=== PATIENT | female | born 1995 | race Caucasian/White ===

== ENCOUNTER 2024-06-08 15:08 | Observation (INO) | payer BC, SELFPAY ==
[2024-06-08] VITALS (10 sets, daily range): BP systolic 110–119; BP diastolic 59–69; PULSE 107–128; RESP 20; TEMP 37.1–38.4; O2SAT 78–99; BMI 27.6; BMI 28.3
--- NOTE | ~2024-06-08 | MR_ITS ---
EXAMINATION: MR cervical spine wo con DATE: 06/09/2024 11:26 INDICATION: Syncope. TECHNIQUE: Magnetic resonance imaging (MRI) of the cervical spine was performed without intravenous c ontrast. COMPARISON: None FINDINGS: There is 9 degrees dextrocurvature of cervicothoracic spine. There is kyphosis of cervical spine. Vertebral body heights are normal. Intervertebral disc heights are normal. The spinal cord sig nal intensity is normal. The following disc levels are specifically discussed: C2-C3: The disc does not extend beyond the endplate margin. There is no uncovertebral joint osteoarth ritis. There is no facet joint osteoarthritis. There is no neural foraminal stenosis. There is no michelle tral canal stenosis. C3-C4: The disc does not extend beyond the endplate margin. There is no uncovertebral joint osteoarth ritis. There is no facet joint osteoarthritis. There is no neural foraminal stenosis. There is no michelle tral canal stenosis. C4-C5: The disc does not extend beyond the endplate margin. There is no uncovertebral joint osteoarth ritis. There is no facet joint osteoarthritis. There is no neural foraminal stenosis. There is no michelle tral canal stenosis. C5-C6: There is a central extrusion. There is mild bilateral uncovertebral joint osteoarthritis. Ther e is no facet joint osteoarthritis. There is mild right neural foraminal stenosis. There is mild cent ral canal stenosis with ventral indentation of the spinal cord. C6-C7: The disc does not extend beyond the endplate margin. There is mild left uncovertebral joint os teoarthritis. There is no facet joint osteoarthritis. There is no neural foraminal stenosis. There is no central canal stenosis. C7-T1: The disc does not extend beyond the endplate margin. There is no uncovertebral joint osteoarth ritis. There is mild bilateral facet joint osteoarthritis. There is no neural foraminal stenosis. The re is no central canal stenosis. IMPRESSION: 1. Mild cervical spondylosis. Reviewed, dictated and finalized at location A. NT RESOURCE SPECIALIST
--- NOTE | ~2024-06-08 | MR_ITS ---
EXAMINATION: MR brain/brain stem wo con DATE: 06/09/2024 11:09 INDICATION: Syncopal episode with loss of consciousness during TECHNIQUE: Magnetic resonance imaging (MRI) of the brain and brainstem was performed without intraven ous contrast. Sequences included sagittal and axial T1-weighted SE, axial diffusion-weighted FS SE, a xial 3D SWAN, axial T2-weighted FLAIR, and axial T2-weighted FSE. Postcontrast axial and coronal T1-w eighted SE was obtained. Apparent diffusion coefficient (ADC) maps were created. COMPARISON: None. FINDINGS: There are no areas of restricted diffusion to suggest acute infarction. No intracranial hemorrhage or abnormal intracranial mass lesion. There are scattered areas of nonspecific increased T2-weighted si gnal intensity in the cerebral white matter, predominantly involving the deep and periventricular whi te matter. There are no intraparenchymal signal abnormalities seen on the other pulse sequences. The ventricles are symmetric and normal in size. There are no abnormal extra-axial fluid collections. Avelino w voids are seen in the cerebral arteries on the T2-weighted sequences consistent with their expected patency. Mild to moderate mucosal thickening throughout the bilateral ethmoid, sphenoid and maxillar y sinuses. Visualized orbits and soft tissues are unremarkable. IMPRESSION: 1. Sinus disease. Otherwise normal brain MR. Reviewed, dictated and finalized at location B. OPRACTIC NEUROLOGIST
--- NOTE | ~2024-06-08 | US_ITS ---
EXAMINATION: US OB limited DATE: 06/08/2024 16:48 SKIVER MACHINE INDICATION: Post fall COMPARISON: 02/06/2024 TECHNIQUE: Real-time transabdominal obstetric ultrasound. FINDINGS: 5 para 2 Estimated date of delivery by last menstrual period is 10/14/2024 A single intrauterine gestation is identified in breech presentation with placenta posterior. cardiac activity is identified at a rate of 157 bpm. IMPRESSION: Single intrauterine gestation with an approximate gestational age of 21 weeks and 5 days, with cardiac activity identified. Reviewed, dictated and finalized at location A. ER MACHINE IMPRESSION: Single intrauterine gestation with an approximate gestational age of 21 weeks a nd 5 days, with cardiac activity identified.
--- OUTSIDE RECORDS SUMMARY | 2024-06-08 15:33 | XMS_ITS ---
Author Organization Unknown Address [address] [place] [phone] Phone Care Team Providers Care Checker Cashier Name Role Phone YUMIKO MCKEON Attending Unavailable NO PCP Primary Unavailable Results RESPIRATORY 4 PLEX COVID FLU RSV PCR - Collect Date/Time: 01/09/2024 19:40 [facility] ID: [id number] [place] [address], [id number] LOINC: 27115-1 Test Value Unit Reference Range Code Code System Flag SARS CoV2 PCR NEGATIVE FLU A PCR NEGATIVE FLU B PCR NEGATIVE RSV PCR NEGATIVE SEND TO [facility]? NO Social History Type Status Start Date End Date Code Code Syst em Smoking History Never smoker (Never Smoked) [id number] SNOMED CT Sex Female Hospital Discharge Instructions Should you have any questions prior to discharge, please contact a member of your healthcare team. If you have left the hospital and have any questions, please contact your primary care physician. Reason For Referral No Data Found Plan of Treatment No Data Found Encounters Encounter Diagnosis Start Date Code Code Sys tem Acute sinusitis, unspecified 01/09/2024 SNOMED-CT Personal Care Team Section Performer Name Performer Role Active Date Inactive LUCIUS Ordonez PCP - Primary care physician 2024-06-08
--- OUTSIDE RECORDS SUMMARY | 2024-06-08 15:33 | XMS_ITS | Encounter Summary ---
Author Organization [facility] Address [address] [place] [address]. [place] [address] [place] [address] Care Team Providers Care Screen Tender Helper Name Role Phone None, Provider Primary Care Provider Fantasma Francis MD Primary Care Provider [phone] Encounter Details Date Type Department Care Team (Late st Contact Info) Description 10/12/2018 Abstract SFL CONVERSION [address] [place] [address] , Generic Conversion, Social History Tobacco Use Types Packs/Day Years Used Date Smoking Tobacco: Never Assessed Comments Unknown Sex and Gender Information Value Date Recorded Sex Assigned at Female 07/01/2021 5:56 AM PUBLIC HEALTH TEACHER Legal Sex Female 9:04 AM CDT Gender Identity Female 07/01/2021 5:56 AM PUBLIC HEALTH TEACHER Sexual Orientation Straight 07/01/2021 5: 56 AM PUBLIC HEALTH TEACHER documented as of this encounter Plan of Treatment Not on file documented as of this encounter Visit Diagnoses Not on filedocumented in this encounter Additional Health Concerns Infection Onset Date Last Indicated Resolved Time COVID-19 Rule Out 03/15/2021 03/15/2021 03/15/2021 6:17 PM PUBLIC HEALTH TEACHER COVID-19 Rule Out 05/20/2021 05/20/2021 05/20/2021 12:22 PM PUBLIC HEALTH TEACHER COVID-19 Confirmed 05/20/2021 05/20/2021 12:34 AM PUBLIC HEALTH TEACHER COVID-19 Rule Out 06/28/2021 06/28/2021 06/29/2021 7:06 PM PUBLIC HEALTH TEACHER documented as of this encounter Care Teams Screen Tender Helper Relationship Specialty Start Date End Date None, Provider, PCP - General 12/07/18 03/17/20 Fantasma Nina MD [address] [id number] PCP - General FAMILY PRACTICE 03/18/20 documented as of this encounter
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
--- OUTSIDE RECORDS SUMMARY | 2024-06-08 15:33 | XMS_ITS | Continuity of Care Document ---
Author Organization [facility] Address [address] [place] [address] Phone Care Team Providers Care Account Processor Name Role Phone Unavailable Unavailable Unavailable Advance Directives Directive Yes / No Effective Date File Name No Information Encounters Encounter Description Practice Location Reason(s) For Visit Diagnoses Date Provider Providers Copied on Encounter [facility], [address], [place], [place], [id number], [place] tel:[phone] No Information 3 No Information Referring Provider: Kannan [address], [place], [address]. tel:[phone] Family History Family Member Type Diagnosis Age At Onset No Information Payers Payer name Insurance type Covered democrat ID Authorariellaa ayde(s) [facility] [id number] Social History Type Description Quantity Date Captured Comments Sex Female Smoking Status No Information Chief Complaint And Reason For Visit No Information History Of Present Illness Encounter Date Complaint History Of Prese nt Illness No Information Instructions Date Instruction Additional Infor mation No Information Assessments Type Assessment Date No Information
--- OUTSIDE RECORDS SUMMARY | 2024-06-08 15:33 | XMS_ITS | Encounter Summary ---
Author Organization [facility] Address [address] [place] [address]. [place], [place] [address] [place] [address] Care Team Providers Care Mechanical Door Repairer Name Role Phone Fantasma Nina MD Primary Care Provider [phone] Encounter Details Date Type Department Care Team (Late st Contact Info) Description 09/26/2023 Avec Lab. Message [facility] [employer] [address] [facility] [place] [place] [address] Pete, [facility] Provider Proof of name change Social History Tobacco Use Types Packs/Day Years Used Date Smoking Tobacco: Never Smokeless Tobacco: Never Alcohol Use Standard Drinks/Week Comments Not Currently 0 (1 standard drink = 0.6 oz pur e alcohol) AUDIT-C Answer Date Recorded Frequency of Alcohol Consumption Never 12/07/2018 Average Number of Drinks Not on file 019 Frequency of Binge Drinking Not on file 07/2018 Comments No Sex and Gender Information Value Date Recorded Sex Assigned at Female 07/01/2021 5:56 AM MMA FIGHTER Legal Sex Female 9:04 AM CDT Gender Identity Female 07/01/2021 5:56 AM MMA FIGHTER Sexual Orientation Straight 07/01/2021 5: 56 AM MMA FIGHTER documented as of this encounter Functional Status * RETIRED Are you deaf or do you have serious difficulty hearing Answer Date of Assessment Author Status No 07/01/2021 6:11 AM MMA FIGHTER Activ e * RETIRED Are you blind or do you have serious difficulty seeing, even when wearing glasses? Answer Date of Assessment Author Status No 07/01/2021 6:11 AM MMA FIGHTER Activ e * Do you have serious difficulty walking or climbing stairs? Answer Date of Assessment Author Status No 07/01/2021 6:11 AM Verna Almaraz R N Active * Do you have difficulty dressing or bathing? Answer Date of Assessment Author Status No 07/01/2021 6:11 AM Verna Almaraz R N Active * Because of a physical, mental, or emotional condition, do you have difficulty doing errands alone such as visiting a doctor's office or shopping? Answer Date of Assessment Author Status No 07/01/2021 6:11 AM Verna Almaraz R N Active documented as of this encounter Mental Status * Because of a physical, mental, or emotional condition, do you have serious difficulty concentrating, remembering, or making decisions? Answer Entry Date Author Status No 07/01/2021 6:11 AM Verna Almaraz R N Active documented in this encounter Plan of Treatment Not on file documented as of this encounter Visit Diagnoses Not on filedocumented in this encounter Care Teams Mechanical Door Repairer Relationship Specialty Start Date End Date Fantasma Nina MD [address] [place] [address] [place] [address] PCP - General FAMILY PRACTICE 03/18/20 documented as of this encounter
--- OUTSIDE RECORDS SUMMARY | 2024-06-08 15:33 | XMS_ITS | Clinical Summary ---
Author Organization [facility] Address [address] [place] [address]. [place], [place] [address] [place] [address] Care Team Providers Care Circular Sawyer Helper Name Role Phone Fantasma Nina MD Primary Care Provider [phone] Allergies No known active allergies Medications No known medications Active Problems Problem Noted Date Diagnosed Date Iron deficiency anemia 12/08/2021 Acute blood loss anemia 07/02/2021 Chronic anemia 07/02/2021 Overview (07/02/2021): Chronic anemia Decreased am[facility]otic fluid ([facility]) 07/01/2021 Decreased movements in third trimester ( [facility]) 07/01/2021 Abnormal weight gain during ([facility]) 07/01/2021 Rubella non-immune status, antepartum ([facility]) 07/01/2021 History of delivery 07/01/2021 Anemia during in second trimester ([facility]) 03/15/2021 38 weeks gestation of ([facility] 2019 Resolved Problems Problem Noted Date Diagnosed Date Resolved Date COVID-19 affecting in third trimester ([facility]) 05/20/2021 07/01/2021 Urethral irritation 02/25/2021 07/01/19 Immunizations Name Administration Dates Next Due MMR (MMRII) 07/03/2021 Family History Medical History Relation Comments Heart Disease Father Cancer Maternal Grandfather Cancer Mother Heart Disease Mother Cancer Paternal Grandmother Relation Status Comments Father Alive Maternal Grandfather Mother Alive Paternal Grandmother Social History Tobacco Use Types Packs/Day Years [...] Sex Assigned at Female 07/01/2021 5:56 AM PRE K LEAD TEACHER Legal Sex Female 9:04 AM CDT Gender Identity Female 07/01/2021 5:56 AM PRE K LEAD TEACHER Sexual Orientation Straight 07/01/2021 5: 56 AM PRE K LEAD TEACHER Last Filed Vital Signs Vital Sign Reading Time Taken Comments Blood Pressure 110/65 02/21/2024 9:10 PM CDT Pulse 106 02/21/2024 7:03 PM CDT Temperature 36.8 ??C (98.3 ??F) 02/21/2024 7:03 PM CD T Respiratory Rate 16 02/21/2024 7:03 PM CDT Oxygen Saturation 98% 02/21/2024 9:10 PM CDT Inhaled Oxygen Concentration - - Weight 68 kg (150 lb) 02/21/2024 7:03 PM CDT Height 165.1 cm (5' 5 ) 02/21/2024 7:03 PM CDT Body Mass Index 24.96 02/21/2024 7:03 PM CDT Plan of Treatment Health Maintenance Due Date Last Done Comments Cervical Cancer Screening Pa p Smear (Age 21 to 29) Every 3 Years 1994 Cervical Cancer Screening 1994 Annual Physical 1997 Hepatitis C 2012 DTaP, Tdap and Td Vaccines ( 1 - Tdap) 2013 Hepatitis B Vaccines (1 of 3 - 19+ 3-dose series) 2013 COVID-19 Vaccine (2023-2 5 season) 2024 Influenza Adult (#1) 2024 HPV Vaccines Aged Out No longer eligi ble based on patient's age to complete this topic Meningococcal B Vaccine Aged Out No l onger eligible based on patient's age to complete this topic Meningococcal Vaccine Aged Out No maci christiane eligible based on patient's age to complete this topic Pneumococcal Vaccine: Pediat rics (0 to 5 Years) and At-Risk Patients (6 to 64 Years) Aged Out No longer eligible b ased on patient's age to complete this topic RSV Immunizations Under 20 Months Aged Out No longer eligible based on patient's age to complete this topic Insurance [facility] Advance Directives * Full Code (Latest Code Status on File) Date Activated Date Inactivated Comments 07/01/2021 4:27 PM 07/03/2021 1:39 PM * Full Code Date Activated Date Inactivated Comments 05/20/2021 4:55 PM 05/21/2021 2:59 PM * Full Code Date Activated Date Inactivated Comments 03/08/2021 11:32 AM 03/08/2021 3:33 PM Care Teams Circular Sawyer Helper Relationship Specialty Start Date End Date Fantasma Nina MD [address] [facility] [place] [phone] PCP - General FAMILY PRACTICE 03/18/20
--- OUTSIDE RECORDS SUMMARY | 2024-06-08 15:33 | XMS_ITS ---
Author Organization Unknown Address [address] [place] [phone] Phone Care Team Providers Care Gravity Prospecting Observer Name Role Phone JUDMONIQUE TIERNEY Attending Unavailable NATHAN Peralta Primary Unavailable Results URINALYSIS w/Microscopy/C&S if indicated - Collect Date/Time: 06/08/2024 12:35 [facility] ID: [id number] [address] [place], [place], [id number] LOINC: 80640-4 Test Value Unit Reference Range Code Code System Flag UR SOURCE VOIDED 73266-0 LOINC COLOR STRAW YELLOW 5778-6 LOINC CLARITY SL CLOUDY CLEAR 82588-6 LOINC SPEC GRAVITY 1.010 1.000-1.030 5811-5 LOINC PH 6.0 5.0 - 6.5 5803-2 LOINC LEUK EST NEGATIVE NEGATIVE 5799-2 LOINC NITRATE NEGATIVE NEGATIVE PROTEIN NEGATIVE NEGATIVE 5804-0 LOINC GLUCOSE NEGATIVE NEGATIVE 91248-9 LOINC KETONES NEGATIVE NEGATIVE 76207-0 LOINC UROBILINOGEN 0.2 0.2 - 1.0 5818-0 LOINC BILIRUBIN NEGATIVE NEGATIVE 77422-7 LOINC BLOOD NEGATIVE NEGATIVE 46204-7 LOINC WBC 0-2 0 - 2 58725-5 LOINC RBC 0-2 0 - 2 68204-3 LOINC SQ EPITHELIAL MODERATE RARE-FEW BACTERIA FEW NONE SEEN 28715-0 LOINC MUCUS NONE SEEN NONE SEEN 8247-9 LOINC YEAST NOT PRESENT NOT PRESENT 51442-3 LOINC TRICHOMONAS NOT PRESENT NOT PRESENT 85974-9 LOINC SPERMATOZOA NOT PRESENT NOT PRESENT 96201-8 LOINC CASTS NOT PRESENT 72425-0 LOINC CRYSTALS NOT PRESENT 70556-6 LOINC CULTURE? NO 8251-1 LOINC DIAGNOSIS N/A CBC W/ DIFF - Collect Date/T jenni: 06/08/2024 09:43 [facility] ID: [id number] [address] [place], [place], [id number] LOINC: 10468-0 Test Value Unit Reference Range Code Code System Flag WBC 10.4 10^3uL L=4.8 H=10.8 RBC 3.86 10^6uL L=4.20 H=5.40 L HEMOGLOBIN 10.2 g/dL L=12.0 H=16.0 718-7 LOINC L HEMATOCRIT 31.8 VOL% L=37.0 H=47.0 4544-3 LOINC L MCV 82.4 fL L=81.0 H=99.0 MCH 26.4 pg L=27.0 H=32.0 L MCHC 32.1 g/dL L=32.0 H=36.0 PLATELETS 325 10^3uL L=100 H=400 66875-5 LOINC RDW 15.0 % L=11.7 H=15.5 %GRAN 75.9 % L=40.0 H=70.0 39203-2 LOINC H %LYMPH 9.5 % L=20.0 H=45.0 736-9 LOINC L %MONO 12.6 % L=2.0 H=10.0 71325-3 LOINC H %EOS 0.9 % L=0.0 H=6.0 713-8 LOINC %BASO 0.4 % L=0.0 H=3.0 706-2 LOINC #NEUT 7.9 10^3uL L=1.9 H=7.6 81382-0 LOINC H #LYMPH 1.0 10^3uL L=0.9 H=4.9 20363-7 LOINC #MONO 1.3 10^3uL L=0.1 H=0.9 39181-9 LOINC H #EOS 0.1 10^3uL L=0.0 H=0.6 712-0 LOINC #BASO 0.04 10^3uL L=0.00 H=0.10 57118-7 LOINC #IM GRANS 0.1 10^3uL L=0.0 H=7.0 82784-9 LOINC %IM GRANS 0.7 % L=0.0 H=5.0 30551-9 LOINC %NRB 0.0 L=0.0 H=0.2 71881-7 LOINC #NRB 0.000 L=0.000 H=0.012 81401-5 LOINC MANUAL DIFF NOT INDICATED RBC MORPH NOT INDICATED COMPREHENSIVE METABOLIC PANE L - Collect Date/Time: 06/08/2024 09:43 [facility] ID: [id number] [address] [place], [place], [id number] LOINC: 33282-7 Test Value Unit Reference Range Code Code System Flag FASTING UNKNOWN BUN 5 mg/dL L=7 H=20 3094-0 LOINC L CREATININE 0.50 mg/dL L=0.52 H=1.04 2160-0 LOINC L GLUCOSE 111 mg/dL L=74 H=106 2345-7 LOINC H SODIUM 135 mmol/L L=132 H=144 2951-2 LOINC POTASSIUM 3.8 mmol/L L=3.5 H=5.1 2823-3 LOINC CHLORIDE 106 mmol/L L=98 H=107 2075-0 LOINC CO2 22.0 mmol/L L=22.0 H=30.0 2028-9 LOINC ANION GAP 11 L=10 H=20 46039-4 LOINC OSMOLALITY 278 mOs/kG L=280 H=296 46335-4 LOINC L BUN/CREAT 10.0 3097-3 LOINC CALCIUM 8.5 mg/dL L=8.3 H=10.5 71471-8 LOINC AST 25 U/L L=15 H=46 1920-8 LOINC ALT 13 U/L L=9 H=72 1742-6 LOINC ALKALINE PHOS 64 U/L L=38 H=126 6768-6 LOINC TOTAL BILI 0.2 mg/dL L=0.2 H=1.3 1975-2 LOINC ALBUMIN 3.1 G/dL L=3.5 H=5.0 1751-7 LOINC L TOTAL PROTEIN 6.8 g/L L=6.3 H=8.2 2885-2 LOINC A/G RATIO 0.8 39448-1 LOINC AGE 28 14858-1 LOINC eGFR NON-AFR 155 ml/min eGFR AFR AMER 188 ml/min PROTIME - Collect Date/Time: 06/08/2024 09:43 [facility] ID: [id number] [address] [place] [address], [id number] LOINC: 72341-3 Test Value Unit Reference Range Code Code System Flag PT 9.9 Sec L=9.7 H=11.7 78971-7 LOINC INR 0.9 Sec L=0.9 H=1.1 27574-8 LOINC PTT - Collect Date/Time: 06/2024 09:43 [facility] ID: [id number] [address] [place] [address], [id number] LOINC: 92336-7 Test Value Unit Reference Range Code Code System Flag PTT 25.0 Sec L=23.0 H=31.2 4 PLEX RESPIRATORY COVID FLU RSV PCR - Collect Date/Time: 06/08/2024 09:40 [facility] ID: [id number] [address] [place] [address], [id number] LOINC: 92187-0 Test Value Unit Reference Range Code Code System Flag SARS CoV2 PCR NEGATIVE FLU A PCR POSITIVE A FLU B PCR NEGATIVE RSV PCR NEGATIVE SEND TO [facility]? YES Social History Type Status Start Date End Date Code Code Syst em Smoking History Never smoker (Never Smoked) [id number] SNOMED CT Sex Female Hospital Discharge Instructions Should you have any questions prior to discharge, please contact a member of your healthcare team. If you have left the hospital and have any questions, please contact your primary care physician. Reason For Referral No Data Found Plan of Treatment No Data Found Personal Care Team Section Performer Name Performer Role Active Date Inactive LUCIUS Ordonez PCP - Primary care physician 02
--- NOTE | 2024-06-08 15:34 | PC.NURSE ---
At bedside for several minutes attempting to find FTH's. Dr Méndez notified and orders received for US and MRI of head.
--- NOTE | 2024-06-08 15:52 | PC.NURSE ---
Patient up to void, voided a large amount. After returning to bed a second attempt made to find FHT's. FHT's 155-160's. Dr Méndez notified of fht's. Cont with US for fluid and placenta check.
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
--- NOTE | 2024-06-08 16:13 | P.CONIM_ITS ---
Assessment and Plan Assessment and plan (1) Syncopal episodes: Qualifiers: Syncope type: unspecified Qualified Code(s): R55 - Syncope and collapse Code(s): R55 - Syncope and collapse Status: Acute Assessment and Plan: - MR brain and c-spine w/o con - Hgb 10.2, MCV and MCHC within normal limits previous hx of NATALIE, restart iron supplementation - repeat EKG - IV fluids: D5/LR at 125 mL/hr - telemetry monitoring Suspect syncope is more likely vasovagal given it was accompanied by hot flushing and dizziness prior to syncope. Low suspicion for cardiac arrhythmia or pulmonary embolism given the patient is young and currently has a viral infection. (2) Second trimester : Code(s): Z34.92 - Encounter for supervision of normal , unspecified, second trimester Status: Acute Assessment and Plan: - OB US: Single intrauterine gestation with an approximate gestational age of 21 weeks and 5 days, with cardiac activity identified. - , 2 ectopic pregnancies - vitamin (3) Influenza A: Code(s): J10.1 - Influenza due to other identified influenza virus with other respiratory manifestations Status: Acute Assessment and Plan: - tested positive for influenza A on 06/08 and symptom onset within the last 24 hours - Tamiflu 75 mg BID - supportive care - monitor WBC/CBC - currently not requiring increased supplemental O2 Plan Diet: NPO until imaging results -> regular GI Prophylaxis: not currently indicated DVT Prophylaxis: SCDs Lines: peripheral Code Status: full code HPI Date of Consult Consult date: 06/08/24 Requesting Physician: Ryan Stack MD Primary Care Provider: UNKNOWN,DOCTOR Consult Narrative Reason for consult: LOC, fall, 22weeks preg, Head injury Narrative: 28 y/p F presents here for further evaluation of syncope/fall with no significant past medical history. The patient presents here from [facility] for further evaluation of syncope with loss of consciousness /fall. She reports she went to the coffee shop for a cup coffee when she began to feel lightheaded and hot. Patient then had a syncopal episode with unknown LOC duration, was not with patient at the time and no time reported to EMS. She reports she does not remember passing out, only has recollection of being in the ambulance. She is concerned she may have passed out again in the ambulance as she has poor recollection of events then as well. She did sustain a small laceration to the back of her head. Post fall she is reporting a headache and dizziness. She describes the headache as posterior, achy, with intermittent radiation into her neck (elicited by turning head). She denies any numbness, tingling, or weakness in her extremities. She also denies phonophobia, photophobia, changes in vision or changes in speech. She did report she had a similar episode with her first , dizziness and black out spells but was severely anemic (NATALIE) according to her report. Not currently on an iron supplement. Her last menstrual cycle was on December of 2023, unsure of exact date. She is currently 22 weeks . , 2 ectopic pregnancies. She currently receives her care at [facility]. She also reports she has been experiencing cold symptoms including congestion and shortness of breath for the past 24 hours. The patient tested positive for flu A at the outside hospital today. Damaso recently also tested positive for the flu. She was initially tachycardic upon presentation in the 130s. Post 2L bolus she is now in the low 100s Initial VS at presentation: 98.8? F, HR 132, R 14, 122/67, and 98% on RA. ED workup showed: No leukocytosis, hemoglobin 10.2, MCV within normal limits, MCHC within normal limits, creatinine 0.5 and EGFR 155, osmolality 278, commands Mackenzie, UA was unremarkable. Patient tested positive for flu A. Review of Systems Review of Systems: All systems reviewed & are unremarkable except as noted in HPI and below PMFSH Past Medical History Medical History NATALIE (iron deficiency anemia) Exam Const: General: comfortable and no acute distress Other: , female, nontoxic appearance HENMT: Face/Nose/Sinus: Normal nares present Mouth: Yes moist mucous membranes Eyes: General: appearance normal, both eyes and all related structures Sclera: sclerae normal Pupils: Equal, round and reactive pupils present EOM: EOMs intact bilaterally Resp: Effort & Inspection: normal respiratory effort Auscultation: clear to auscultation bilaterally Cardio: Rate: regular rate Rhythm: regular rhythm Other: S1-S2 present without murmur, rub, ectopy GI: Other: Abdomen rounded, soft gravid uterus, normoactive bowel sounds in all quadrants. Skin: General skin exam: normal color and no rashes or lesions noted Wounds: wounds noted Other: Small laceration to posterior head, proximally 2 cm. No active bleeding. Neuro: Speech: normal speech Motor exam (neuro): 5/5 motor strength present throughout Sensory Exam: normal sensation Other: A&O x4 Extrem: General: normal to inspection Psych: Mental Status: mental status grossly normal Affect: normal affect Other: Good insight and judgment, pleasant Quality VTE Prophylaxis VTE prophylaxis: mechanical ordered Hospitalist [facility] Advance Care Plan I have confirmed that the patient's Advanced Care Plan is present, code status is documented, or surrogate decision maker is listed in patient medical record.: Yes Medication Reconciliation I have utilized all available resources to obtain, update and review the patients current medications (includes all prescriptions, OTC, herbals, cannabis, and nutritional supplements).: Yes
--- NOTE | 2024-06-08 16:30 | PC.NURSE ---
Dr Méndez here to see patient. No new orders.
--- NOTE | 2024-06-08 16:46 | ECG_ITS ---
Test Date: 2024-06-09 09:37:54 Measurements Intervals [place] Rate: 107 P: 4 IL: 128 QRS: 17 QRSD: 83 T: -9 QT: 323 QTc: 431 Interpretive Statements SINUS TACHYCARDIA DELAYED PRECORDIAL R/S TRANSITION BORDERLINE ST-T WAVE ABNORMALITY- ANT/INF LEADS ABNORMAL ECG No previous ECG available for comparison Electronically Signed On 06-09-2024 10:37:02 [employer]BE PUMPER by Timothy Dan D.O.
[2024-06-08] MEDS: DEXTROSE 5%/LACTATED RINGERS 1,000 ML 125 ML IV CONT (16:59)
--- NOTE | 2024-06-08 17:14 | PC.NURSE ---
Chauncey Mensah APRN notified that we do not have tele on our floor. Wanting patient transferred to tele floor. House sup notified and no bed is currently available.
--- NOTE | 2024-06-08 17:17 | PC.NURSE ---
Chauncey Mensah APRN notified that no tele bed is available at this time. Will transfer when bed is available.
--- NOTE | 2024-06-08 17:31 | OBADM ---
This patient, Reba Lay, admitted to the OB room OB Post 116 for observation. Patient/family oriented to hospital policies and general routines including ID bracelet, bed and alarms, visiting hours, pain management, procedures, bathroom and other care routines, personal items, smoking policy, room service/diet, and visiting hours. Patient/Family are encouraged to report perceived risks to care and to ask questions if they do not understand what they are told or what they should do.
[2024-06-08] MEDS: OSELTAMIVIR PHOSPHATE 75 MG CAPSULE PO (17:56)
[2024-06-08] MEDS: ACETAMINOPHEN 325 MG TABLET 650 MG PO (18:21)
--- NOTE | 2024-06-08 20:17 | ADMGEN ---
This patient, Reba Lay, was admitted to OB Post 116-00. Patient/family oriented to hospital policies and general routines including ID bracelet, bed and alarms, visiting hours, pain management, procedures, bathroom and other care routines, personal items, smoking policy, room service/diet, and visiting hours. Information on how to activate the Rapid Response Team has been discussed. Patient/Family are encouraged to report perceived risks to care and to ask questions if they do not understand what they are told or what they should do.
[2024-06-09 00:03] VITALS: PULSE 91
[2024-06-09] MEDS: DEXTROSE 5%/LACTATED RINGERS 1,000 ML 125 ML IV CONT ×2 (02:45→12:10)
[2024-06-09 04:00] VITALS: PULSE 98
[2024-06-09 06:00] VITALS: BP 106/67; PULSE 99; RESP 18; TEMP 36.8; O2SAT 97
[2024-06-09 06:49] LABS: Basophils Percent Auto 0.4 % (0.2-1.2); Eosinophils Absolute Auto 0.2 K/mm3 (0-0.3); Eosinophils Percent Auto 2.4 % (0-4.4); Hemoglobin 9.5 g/dL (12.0-15.0); Immature Granulocyte Absolute 0.05 K/mm3 (0.00-0.031); Immature Granulocyte Percent A 0.6 % (0-0.5); Lymphocytes Absolute Auto 0.73 K/mm3 (0.9-3.2); Lymphocytes Percent Auto 9.4 % (18.3-44.2); Mean Corpuscular HGB Conc 31.7 g/dl (32-36); Mean Corpuscular Hemoglobin 26.5 pg (26-34); Mean Corpuscular Volume 83.8 fl (80-100); Monocytes Percent Auto 12.5 % (2.6-8.5); Neutrophils Absolute Auto 5.8 K/mm3 (1.3-6.7); Neutrophils Percent Auto 74.7 % (45.5-73.1); Platelet Count Result 289 k/mm3 (150-375); Red Blood Count 3.58 M/mm3 (4.2-5.4); Red Cell Distribution Width 14.9 % (11.5-14.5); White Blood Count 7.8 K/mm3 (4.5-10.0)
--- NOTE | 2024-06-09 06:54 | P.PNOB_ITS ---
OB - PN: Subj Subjective Date/time seen: 06/09/24 06:54 Interval history: Feeling a lot better. pulse has come down OB - PN: Obj Data Labs 06/09/24 06:23 06/09/24 06:23 Imaging My impression: Await results of mri this am Radiologist's impression: Impressions Obstetrics Ultrasound 06/08/24 16:48 IMPRESSION: Single intrauterine gestation with an approximate gestational age of 21 weeks and 5 days, with cardiac activity identified. OB - PN A/P Assessment and Plan (1) Second trimester : Code(s): Z34.92 - Encounter for supervision of normal , unspecified, second trimester Status: Acute (2) Influenza A: Code(s): J10.1 - Influenza due to other identified influenza virus with other respiratory manifestations Status: Acute (3) Syncopal episodes: Qualifiers: Syncope type: unspecified Qualified Code(s): R55 - Syncope and collapse Code(s): R55 - Syncope and collapse Status: Acute Plan If MRI of the head is normal wall the patient to eat hopefully home today Time Spent With Patient Time: Total time spent is greater than 50% in coordination of care (as documented) at patient's floor/unit and/or counseling patient: Review of Systems 2 Review of Systems: All systems reviewed & are unremarkable except as noted in HPI and below Exam 2 Const: General: cooperative, healthy appearing and comfortable O rientation/consciousness: oriented to person, oriented to place and oriented to time Resp: Effort & Inspection: normal respiratory effort Cardio: Rate: regular rate Rhythm: regular rhythm Heart sounds: S1 normal heart sound present and S2 normal heart sound present
[2024-06-09 07:04] LABS: Potassium 3.8 mmol/L (3.4-5.0)
[2024-06-09 07:13] LABS: Anion Gap 6 mmol/L (4-12); Blood Urea Nitrogen 3 mg/dL (7-17); Calcium 7.8 mg/dL (8.4-10.2); Carbon Dioxide 21 mmol/L (22-30); Chloride 107 mmol/L (98-107); Estimated CRCL calculation 177 ml/min; Estimated Glomerular Filt Rate > 60; Glucose 97 mg/dL (65-110); Sodium 134 mmol/L (137-145)
[2024-06-09 08:00] VITALS: PULSE 104
--- NOTE | 2024-06-09 09:53 | PM.IMPN ---
Progress Note: A&P Assessment and Plan (1) Syncopal episodes: Qualifiers: Syncope type: unspecified Qualified Code(s): R55 - Syncope and collapse Code(s): R55 - Syncope and collapse Status: Acute Assessment and Plan: MRI of brain and C spine was negative for any acute findings, shown cervical spondylosis. Encouraged to do stretching exercises for her neck and use bio-freeze or icy hot as needed. She can also use heat on her shoulders as well She is stable from our standpoint to discharge any time. (2) Second trimester : Code(s): Z34.92 - Encounter for supervision of normal , unspecified, second trimester Status: Acute Assessment and Plan: OB US: Single intrauterine gestation with an approximate gestational age of 21 weeks and 5 days, with cardiac activity identified. Continue vitamin (3) Influenza A: Code(s): J10.1 - Influenza due to other identified influenza virus with other respiratory manifestations Status: Acute Assessment and Plan: Continue Tamiflu for a duration of 5 days. Time Spent With Patient Time with patient: 15 - 25 minutes Subjective Date/time seen: 06/09/24 09:53 Interval history: Patient denies any new complaints today. Labs and imaging reviewed. Review of Systems Review of Systems: All systems reviewed & are unremarkable except as noted in HPI and below Exam Narrative: General: In no acute distress, well nourished Head: atraumatic, no encephalopathy. Denies any lightheadedness, dizziness, vision changes, headache. Eyes: PERRLA, sclera clear Neck: supple, no JVD, no adenopathy, trachea midline Cervical spine: No pain to palpitation down C spine, she does have some tightness and tenderness to her trapezius muscles Cardiac: Normal S1 and S2. No murmur, gallops or friction rubs, peripheral pulses intact. Respiratory: Lungs clear to auscultation, no adventitious lung sounds, currently on room air Extremities: moves all extremities well Neuro: Alert and oriented x4 Objective Data Vital Signs Vital Signs: Vital Signs - 24 hr 06/08/24 16:00 06/08/24 17:30 06/08/24 18:02 Temperature 98.8 F 101.2 F H Pulse Rate Respiratory Rate Blood Pressure Pulse Oximetry Oxygen Delivery Room Air 06/08/24 18:21 06/08/24 19:39 06/08/24 19:39 Temperature 101.2 F H Pulse Rate Respiratory Rate Blood Pressure Pulse Oximetry 78 L 92 Oxygen Delivery 06/08/24 19:39 06/08/24 19:39 06/08/24 19:44 Temperature Pulse Rate 107 H Respiratory Rate Blood Pressure 110/59 L Pulse Oximetry 99 Oxygen Delivery 06/08/24 19:45 06/08/24 19:49 06/08/24 20:18 Temperature Pulse Rate 110 H Respiratory Rate Blood Pressure 118/65 Pulse Oximetry 97 97 Oxygen Delivery Room Air 06/08/24 20:24 06/08/24 22:00 06/09/24 00:03 Temperature 99.5 F Pulse Rate 120 H 114 H 91 Respiratory Rate 20 Blood Pressure 119/69 Pulse Oximetry 97 Oxygen Delivery 06/09/24 04:00 06/09/24 06:00 Temperature 98.3 F Pulse Rate 98 99 Respiratory Rate 18 Blood Pressure 106/67 Pulse Oximetry 97 Oxygen Delivery Intake/Output Intake/Output: Intake & Output 06/06/24 06/07/24 06/08/24 06/09/24 23:59 23:59 23:59 23:59 Intake Total 1100 Output Total 400 1600 Balance -400 -500 Meds/Results Medications: Active Medications Generic Name Dose Route Start Last Admin Trade Name Freq PRN Reason Stop Dose Admin Acetaminophen 650 mg 06/08/24 16:44 06/08/24 18:21 Acetaminophen 325 Mg Tablet PO 650 mg Q4H PRN Administration Mild Pain (1-3) or Fever Benzocaine 1 lozenge 06/08/24 16:41 Benzocaine/Menthol (*Bkc) 18 Ea Lozenge PO PRN PRN Sore Throat Ferrous Sulfate 325 mg 06/09/24 09:00 Ferrous Sulfate [address] PO DAILY KATIUSKA Dextrose/Lactated Ringer's 1,000 mls @ 125 mls/hr 06/08/24 16:40 06/09/24 02:45 Dextrose 5%/Lactated Ringers IV CONT 125 mls/hr .Q8H KATIUSKA Administration Miscellaneous Information 1 each 06/08/24 00:01 Please Add Drug Allergy Info To Patient Profile. XX 07/08/24 00:00 CLARIFY KATIUSKA Oseltamivir Phosphate 75 mg 06/08/24 17:30 06/08/24 17:56 Oseltamivir Phosphate 75 Mg Capsule PO 06/13/24 17:29 75 mg Q12HR KATIUSKA Administration Vit/Calcium/Iron/Folic Ac 1 tab 06/09/24 09:00 Multivit/Min/Pren/Fol Ac/Iron Tablet PO DAILY [facility] Radiology Results: ITS Impressions Obstetrics Ultrasound 06/08/24 16:48 IMPRESSION: Single intrauterine gestation with an approximate gestational age of 21 weeks and 5 days, with cardiac activity identified. Labs Labs: Laboratory Results - last 24 hr 06/09/24 06:23 WBC 7.8 RBC 3.58 L Hgb 9.5 L Hct 30.0 L MCV 83.8 MCH 26.5 MCHC 31.7 L RDW 14.9 H Plt Count 289 MPV 10.0 Immature Gran % (Auto) 0.6 H Neut % (Auto) 74.7 H Lymph % (Auto) 9.4 L [place] % (Auto) 12.5 H Eos % (Auto) 2.4 Baso % (Auto) 0.4 Lymph # (Auto) 0.73 L [place] # (Auto) 1.0 H Eos # (Auto) 0.2 Baso # (Auto) 0.0 Abs Immat Gran (auto) 0.05 H Absolute Neuts (auto) 5.8 Absolute Nucleated RBC 0.000 Nucleated RBC % 0.0 Sodium 134 L Potassium 3.8 Chloride 107 Carbon Dioxide 21 L Anion Gap 6 BUN 3 L Creatinine 0.39 L Estim Creat Clear Calc 177 Estimated GFR > 60 Glucose 97 Calcium 7.8 L Quality VTE Prophylaxis VTE prophylaxis: mechanical ordered
[2024-06-09] MEDS: MULTIVIT/MIN/PREN/FOL AC/IRON TABLET 1 TAB PO (10:37)
[2024-06-09] MEDS: FERROUS SULFATE 325 MG TABLET DR PO (10:37)
[2024-06-09 12:00] VITALS: PULSE 121
[2024-06-09] MEDS: OSELTAMIVIR PHOSPHATE ORAL SUSP 75 MG/12.5 ML SYRINGE PO (12:10)
[2024-06-09] MEDS: ACETAMINOPHEN 325 MG TABLET 650 MG PO (12:25)
--- NOTE | 2024-06-09 12:25 | PM.OBPNVD ---
OB - PN: Subj Subjective Date/time seen: 06/09/24 12:25 Feels OK today. Mostly just hungry. OB - PN: Obj Data Labs 06/09/24 06:23 06/09/24 06:23 Labs: Laboratory Results - last 24 hr 06/09/24 06:23 WBC 7.8 RBC 3.58 L Hgb 9.5 L Hct 30.0 L MCV 83.8 MCH 26.5 MCHC 31.7 L RDW 14.9 H Plt Count 289 MPV 10.0 Immature Gran % (Auto) 0.6 H Neut % (Auto) 74.7 H Lymph % (Auto) 9.4 L [place] % (Auto) 12.5 H Eos % (Auto) 2.4 Baso % (Auto) 0.4 Lymph # (Auto) 0.73 L [place] # (Auto) 1.0 H Eos # (Auto) 0.2 Baso # (Auto) 0.0 Abs Immat Gran (auto) 0.05 H Absolute Neuts (auto) 5.8 Absolute Nucleated RBC 0.000 Nucleated RBC % 0.0 Sodium 134 L Potassium 3.8 Chloride 107 Carbon Dioxide 21 L Anion Gap 6 BUN 3 L Creatinine 0.39 L Estim Creat Clear Calc 177 Estimated GFR > 60 Glucose 97 Calcium 7.8 L Imaging Radiologist's impression: Impressions Obstetrics Ultrasound 06/08/24 16:48 IMPRESSION: Single intrauterine gestation with an approximate gestational age of 21 weeks and 5 days, with cardiac activity identified. Brain MRI 06/09/24 11:14 IMPRESSION: 1. Sinus disease. Otherwise normal brain MR. Cervical Spine MRI 06/09/24 11:29 IMPRESSION: 1. Mild cervical spondylosis. OB - PN A/P Assessment and Plan (1) Second trimester : Code(s): Z34.92 - Encounter for supervision of normal , unspecified, second trimester Status: Acute Assessment and Plan: MRI shows no acute change. Clinically she feels better. Plan home if OK with hospitalist to f/u in office as scheduled. (2) Influenza A: Code(s): J10.1 - Influenza due to other identified influenza virus with other respiratory manifestations Status: Acute (3) Syncopal episodes: Qualifiers: Syncope type: unspecified Qualified Code(s): R55 - Syncope and collapse Code(s): R55 - Syncope and collapse Status: Acute Exam Narrative: AVSS ABD soft, nontender, gravid EXT nontender
--- NOTE | 2024-06-09 12:34 | P.DS_ITS ---
DS: Admitting Diagnosis Discharge Date 06/09/24 Admitting Diagnosis IUP at 21 weeks Syncope Head laceration Influenza A DS: Discharge Diagnosis Discharge Diagnosis (1) Second trimester : Code(s): Z34.92 - Encounter for supervision of normal , unspecified, second trimester Status: Acute (2) Influenza A: Code(s): J10.1 - Influenza due to other identified influenza virus with other respiratory manifestations Status: Acute (3) Syncopal episodes: Qualifiers: Syncope type: unspecified Qualified Code(s): R55 - Syncope and collapse Code(s): R55 - Syncope and collapse Status: Acute (4) Laceration of head: Code(s): S01.91XA - Laceration without foreign body of unspecified part of head, initial encounter Status: Acute DS: Summary Hospital Course Hospital Course: Admitted after syncope with laceration to the head in the setting of influenza A and midtrimester . Hospitalist service consulted. MRI head /neck showed no acute change. She felt better and was able to go home. DS: Data Data Completed and Pending Labs on day of discharge: Labs from last 24 hours 06/09/24 06:23 WBC 7.8 RBC 3.58 L Hgb 9.5 L Hct 30.0 L MCV 83.8 MCH 26.5 MCHC 31.7 L RDW 14.9 H Plt Count 289 MPV 10.0 Immature Gran % (Auto) 0.6 H Neut % (Auto) 74.7 H Lymph % (Auto) 9.4 L [place] % (Auto) 12.5 H Eos % (Auto) 2.4 Baso % (Auto) 0.4 Lymph # (Auto) 0.73 L [place] # (Auto) 1.0 H Eos # (Auto) 0.2 Baso # (Auto) 0.0 Abs Immat Gran (auto) 0.05 H Absolute Neuts (auto) 5.8 Absolute Nucleated RBC 0.000 Nucleated RBC % 0.0 Sodium 134 L Potassium 3.8 Chloride 107 Carbon Dioxide 21 L Anion Gap 6 BUN 3 L Creatinine 0.39 L Estim Creat Clear Calc 177 Estimated GFR > 60 Glucose 97 Calcium 7.8 L Discharge Plan Discharge Attending physician on discharge: Flash Santiago Consulting providers: Aldo Diane Discharging Clinician: Hulsen,Flash M. Patient Disposition: Home, Self-Care Activity: as tolerated Diet: regular Discharge Instructions: Call or return if temperature above 100.4? F, increased abdominal pain, vaginal bleeding or any new problems. Patient Language: [place] Stand Alone Forms: General Discharge Information Follow-up/Referrals: Flash Santiago MD [Physician] - Keep Reg. Scheduled Appt. Discharge Medications: New oseltamivir [Tamiflu] 75 mg capsule 75 mg PO BID Qty: 8 0RF ferrous sulfate 325 mg (65 mg iron) tablet 325 mg PO DAILY Qty: 30 0RF Continued hydroxyzine HCl 25 mg tablet 25 mg PO BID PRN (Reason: anxiety) sertraline 50 mg tablet 50 mg PO DAILY Date of admission: 06/08/24 15:08 Primary Care Provider: UNKNOWN,DOCTOR Admitting Provider: Ryan Pond Attending physician on admission: Abigail Mantilla Condition: Stable
== END 2024-06-09 13:15 | disposition home or self-care (01) ==
LOC: ANH3MEDSUR 06-09 12:33 → ANHOBPP 06-10 07:41
PROVIDERS: Student in an Organized Health Care Education/Training Program; Admitting Provider Obstetrics & Gynecology; Visit Provider Nurse Practitioner Acute Care
DX: O26.892 Other specified pregnancy related conditions, second trimester (principal); R55 Syncope and collapse; O9A.212 Injury, poisoning and certain other consequences of external causes complicating pregnancy, second trimester; S01.91XA Laceration without foreign body of unspecified part of head, initial encounter; W19.XXXA Unspecified fall, initial encounter; O99.512 Diseases of the respiratory system complicating pregnancy, second trimester; J10.1 Influenza due to other identified influenza virus with other respiratory manifestations; Z3A.21 21 weeks gestation of pregnancy
CPT/HCPCS: 36415; 70551; 72141; 76815; 80048; 85025; 93005; 96360; 96361; A9270; G0378; G0379; J7121

== ENCOUNTER 2024-08-18 12:23 | Outpatient (CLI) | payer BC, SELFPAY ==
[2024-08-18] VITALS (10 sets, daily range): BP systolic 113–125; BP diastolic 69–81; PULSE 102–128; BMI 31.7
[2024-08-18 13:11] LABS: Basophils Absolute Auto 0.1 K/mm3 (0.0-0.1); Basophils Percent Auto 0.4 % (0.2-1.2); Eosinophils Absolute Auto 0.2 K/mm3 (0-0.3); Eosinophils Percent Auto 1.1 % (0-4.4); Hematocrit 30.4 % (37.0-47.0); Immature Granulocyte Absolute 0.19 K/mm3 (0.00-0.031); Immature Granulocyte Percent A 1.4 % (0-0.5); Lymphocytes Absolute Auto 2.06 K/mm3 (0.9-3.2); Lymphocytes Percent Auto 15.1 % (18.3-44.2); Mean Corpuscular HGB Conc 29.6 g/dl (32-36); Mean Corpuscular Hemoglobin 22.6 pg (26-34); Mean Corpuscular Volume 76.4 fl (80-100); Mean Platelet Volume 9.6 fl (7.4-10.4); Monocytes Absolute Auto 1.2 K/mm3 (0.1-0.6); Platelet Count Result 413 k/mm3 (150-375); Red Blood Count 3.98 M/mm3 (4.2-5.4); Red Cell Distribution Width 16.1 % (11.5-14.5); White Blood Count 13.6 K/mm3 (4.5-10.0)
[2024-08-18 13:18] LABS: Add Urine Microscopic? YES; Appearance Urine Cloudy (Clear); Bacteria Urine 4+ /hpf; Bilirubin Urine Negative (Negative); Blood Urine Negative (Negative); Color Urine Yellow (Yellow); Glucose Urine UA Negative (Negative); Ketones Urine Negative (Negative); Leukocyte Esterase Ur 3+ LEU/UL (Negative); Nitrate Urine Negative (Negative); Non Pathogenic Casts 0-2; Protein Urine Negative (Negative); RBC Urine 0-2 /hpf (0-2); Specific Grav Ur 1.007 (1.001-1.035); Squamous Epithelial Cell Urine Many /hpf (Few); Urobilinogen Urine 0.2 mg/dL (<2.0); WBC Urine 51-100 /hpf (0-3)
[2024-08-18 13:39] LABS: Anisocytosis 1+; Hypochromasia 2+; Platelet Estimate Increased (Adequate); Schistocytes None Seen
--- OUTSIDE RECORDS SUMMARY | 2024-08-18 13:39 | XMS_ITS | Encounter Summary ---
Author Organization [facility] Address [address] [place] [address] Care Team Providers Care Pre Sales Architect Name Role Phone Fantasma Nina MD Primary Care Provider [phone] Encounter Details Date Type Department Care Team (Late st Contact Info) Description 09/26/2023 [employer] Message [facility] [employer] [address] [place] [address] [employer], [facility] Provider Proof of name change [...] Sex Assigned at Female 07/01/2021 5:56 AM FRONT OFFICE MANAGER Legal Sex Female 9:04 AM CDT Gender Identity Female 07/01/2021 5:56 AM FRONT OFFICE MANAGER Sexual Orientation Straight 07/01/2021 5: 56 AM FRONT OFFICE MANAGER documented as of this encounter Functional Status * RETIRED Are you deaf or do you have serious difficulty hearing Answer Date of Assessment Author Status No 07/01/2021 6:11 AM FRONT OFFICE MANAGER Activ e * RETIRED Are you blind or do you have serious difficulty seeing, even when wearing glasses? Answer Date of Assessment Author Status No 07/01/2021 6:11 AM FRONT OFFICE MANAGER Activ e * Do you have serious difficulty walking or climbing stairs? Answer Date of Assessment Author Status No 07/01/2021 6:11 AM FRONT OFFICE MANAGER Verna Yanes R N Active * Do you have [...] on filedocumented in this encounter Care Teams Pre Sales Architect Relationship Specialty Start Date End Date Fantasma Nina MD [address] [place] [address] PCP - General FAMILY PRACTICE 03/18/20 documented as of this encounter
--- OUTSIDE RECORDS SUMMARY | 2024-08-18 13:39 | XMS_ITS ---
Author Organization Unknown Address [address] [place] [phone] Phone Care Team Providers Care Transplant Nurse Name Role Phone JUDMONIQUE TIERNEY Attending Unavailable NATHAN Peralta Primary Unavailable Results URINALYSIS w/Microscopy/C&S if indicated - Collect Date/Time: 06/08/2024 12:35 [facility] ID: [id number] [place] [address], [id number] LOINC: 63337-5 Test Value Unit Reference Range Code Code System Flag UR SOURCE VOIDED 87928-1 LOINC COLOR STRAW YELLOW 5778-6 LOINC CLARITY SL CLOUDY CLEAR 89234-3 LOINC SPEC GRAVITY 1.010 1.000-1.030 5811-5 LOINC PH 6.0 5.0 - 6.5 5803-2 LOINC LEUK EST NEGATIVE NEGATIVE 5799-2 LOINC NITRATE NEGATIVE NEGATIVE PROTEIN NEGATIVE NEGATIVE 5804-0 LOINC GLUCOSE NEGATIVE NEGATIVE 72800-1 LOINC KETONES NEGATIVE NEGATIVE 91453-9 LOINC UROBILINOGEN 0.2 0.2 - 1.0 5818-0 LOINC BILIRUBIN NEGATIVE NEGATIVE 71481-5 LOINC BLOOD NEGATIVE NEGATIVE 72630-3 LOINC WBC 0-2 0 - 2 60423-4 LOINC RBC 0-2 0 - 2 50315-1 LOINC SQ EPITHELIAL MODERATE RARE-FEW BACTERIA FEW NONE SEEN 48983-5 LOINC MUCUS NONE SEEN NONE SEEN 8247-9 LOINC YEAST NOT PRESENT NOT PRESENT 38436-2 LOINC TRICHOMONAS NOT PRESENT NOT PRESENT 78789-3 LOINC SPERMATOZOA NOT PRESENT NOT PRESENT 95138-9 LOINC CASTS NOT PRESENT 52141-7 LOINC CRYSTALS NOT PRESENT 47015-6 LOINC CULTURE? NO 8251-1 LOINC DIAGNOSIS N/A CBC W/ DIFF - Collect Date/T jenni: 06/08/2024 09:43 [facility] ID: [id number] [address] [place], [place], [phone] LOINC: 58259-6 Test Value Unit Reference Range Code Code System Flag WBC 10.4 10^3uL L=4.8 H=10.8 RBC 3.86 10^6uL L=4.20 H=5.40 L HEMOGLOBIN 10.2 g/dL L=12.0 H=16.0 718-7 LOINC L HEMATOCRIT 31.8 VOL% L=37.0 H=47.0 4544-3 LOINC L MCV 82.4 fL L=81.0 H=99.0 MCH 26.4 pg L=27.0 H=32.0 L MCHC 32.1 g/dL L=32.0 H=36.0 PLATELETS 325 10^3uL L=100 H=400 02112-3 LOINC RDW 15.0 % L=11.7 H=15.5 %GRAN 75.9 % L=40.0 H=70.0 85223-4 LOINC H %LYMPH 9.5 % L=20.0 H=45.0 736-9 LOINC L %MONO 12.6 % L=2.0 H=10.0 39848-5 LOINC H %EOS 0.9 % L=0.0 H=6.0 713-8 LOINC %BASO 0.4 % L=0.0 H=3.0 706-2 LOINC #NEUT 7.9 10^3uL L=1.9 H=7.6 43104-5 LOINC H #LYMPH 1.0 10^3uL L=0.9 H=4.9 91358-3 LOINC #MONO 1.3 10^3uL L=0.1 H=0.9 03260-6 LOINC H #EOS 0.1 10^3uL L=0.0 H=0.6 712-0 LOINC #BASO 0.04 10^3uL L=0.00 H=0.10 80983-9 LOINC #IM GRANS 0.1 10^3uL L=0.0 H=7.0 45813-2 LOINC %IM GRANS 0.7 % L=0.0 H=5.0 40228-8 LOINC %NRB 0.0 L=0.0 H=0.2 28752-9 LOINC #NRB 0.000 L=0.000 H=0.012 19683-1 LOINC MANUAL DIFF NOT INDICATED RBC MORPH NOT INDICATED COMPREHENSIVE METABOLIC PANE L - Collect Date/Time: 06/08/2024 09:43 [facility] ID: [id number] [address] [place], [place], [id number] LOINC: 79110-3 Test Value Unit Reference Range Code Code [...] 2028-9 LOINC ANION GAP 11 L=10 H=20 96779-1 LOINC OSMOLALITY 278 mOs/kG L=280 H=296 81066-2 LOINC L BUN/CREAT 10.0 3097-3 LOINC CALCIUM 8.5 mg/dL L=8.3 H=10.5 69712-2 LOINC AST 25 U/L L=15 H=46 1920-8 LOINC ALT 13 U/L L=9 H=72 1742-6 LOINC ALKALINE PHOS 64 U/L L=38 H=126 6768-6 LOINC TOTAL BILI 0.2 mg/dL L=0.2 H=1.3 1975-2 LOINC ALBUMIN 3.1 G/dL L=3.5 H=5.0 1751-7 LOINC L TOTAL PROTEIN 6.8 g/L L=6.3 H=8.2 2885-2 LOINC A/G RATIO 0.8 73363-9 LOINC AGE 28 60669-4 LOINC eGFR NON-AFR 155 ml/min eGFR AFR AMER 188 ml/min PROTIME - Collect Date/Time: 06/08/2024 09:43 [facility] ID: [id number] [address] [place] [address], [phone] LOINC: 85578-6 Test Value Unit Reference Range Code Code System Flag PT 9.9 Sec L=9.7 H=11.7 98497-6 LOINC INR 0.9 Sec L=0.9 H=1.1 75470-4 LOINC PTT - Collect Date/Time: 06/2024 09:43 [facility] ID: [id number] [address] [place] [address], [phone] LOINC: 07022-8 Test Value Unit Reference Range Code Code System Flag PTT 25.0 Sec L=23.0 H=31.2 4 PLEX RESPIRATORY COVID FLU RSV PCR - Collect Date/Time: 06/08/2024 09:40 [facility] ID: [id number] [address] [place] [address], [phone] LOINC: 72521-2 Test Value Unit Reference Range Code Code System Flag SARS CoV2 PCR NEGATIVE FLU A PCR POSITIVE A FLU B PCR NEGATIVE RSV PCR NEGATIVE SEND TO [facility]? YES Social History Type Status Start Date End Date Code Code Syst em Smoking History Never smoker (Never Smoked) 281385160 SNOMED CT Sex Female Hospital Discharge Instructions Should you have any questions prior to discharge, please contact a member of your healthcare team. If you have left the hospital and have any questions, please contact your primary care physician. Reason For Referral No Data Found Plan of Treatment No Data Found Encounters Encounter Diagnosis Start Date Code Code Sys tem Diseases of the respiratory system complicating , second trimester 06/08/2024 SNOMED-CT Personal Care Team Section Performer Name Performer Role Active Date Inactive Da LUCIUS Barfield PCP - Primary care physician 2024-06-08
--- OUTSIDE RECORDS SUMMARY | 2024-08-18 13:39 | XMS_ITS | Clinical Summary ---
Author Organization [facility] Address [address] [place] [address] Care Team Providers Care Hvac Specialist Name Role Phone Fantasma Nina MD Primary Care Provider [phone] Allergies No known active allergies Medications No known medications Active Problems Problem Noted Date Diagnosed Date Iron deficiency anemia 12/08/2021 Acute blood loss anemia 07/02/2021 Chronic anemia 07/02/2021 Overview (07/02/2021): Chronic anemia Decreased amniotic fluid ([facility]) 07/01/2021 Decreased movements in third trimester ( [facility]) 07/01/2021 Abnormal weight gain during ([facility]) 07/01/2021 Rubella non-immune status, antepartum ([facility]) 07/01/2021 History of delivery 07/01/2021 Anemia during in second trimester ([facility]) 03/15/2021 38 weeks gestation of ([facility]) 2019 Resolved Problems Problem Noted Date Diagnosed Date Resolved Date COVID-19 affecting in third trimester ([facility]) 05/20/2021 07/01/2021 Urethral irritation 02/25/2021 07/01/19 22 Immunizations Immunization Administration Dates Next Due MMR (MMRII) 07/03/2021 [...] Frequency of Binge Drinking Not on file 0807/2018 Comments No Sex and Gender Information Value Date Recorded Sex Assigned at Female 07/01/2021 5:56 AM PHILOSOPHY FACULTY MEMBER Legal Sex Female 9:04 AM CDT Gender Identity Female 07/01/2021 5:56 AM PHILOSOPHY FACULTY MEMBER Sexual Orientation Straight 07/01/2021 5: 56 AM PHILOSOPHY FACULTY MEMBER Last Filed Vital Signs Vital Sign Reading Time Taken Comments Blood Pressure 110/65 02/21/2024 9:10 PM CDT Pulse 106 02/21/2024 7:03 PM CDT Temperature 36.8 C (98.3 F) 02/21/2024 7:03 PM CDT Respiratory Rate 16 02/21/2024 7:03 PM CDT Oxygen Saturation 98% 02/21/2024 9:10 PM CDT Inhaled Oxygen Concentration - - Weight 68 kg (150 lb) 02/21/2024 7:03 PM CDT Height 165.1 cm (5' 5 ) 02/21/2024 7:03 PM CDT Body Mass Index 24.96 02/21/2024 7:03 PM CDT Plan of Treatment Health Maintenance Due Date Last Done Comments Cervical Cancer Screening Pa p Smear (Age 30 to 64) Every 3 Years 1994 Annual Physical 1997 Hepatitis C 2012 DTaP, Tdap and Td Vaccines ( 1 - Tdap) 2013 Hepatitis B Vaccines (1 of 3 - 19+ 3-dose series) 2013 COVID-19 Vaccine (2023-2 5 season) 2024 Cervical Cancer Screening Pa p with HPV Testing (Age 30 to 64) Every 5 Years 2024 Cervical Cancer Screening with HPV 2024 HPV Vaccines Aged Out No longer eligi ble based on patient's age to complete this topic Meningococcal B Vaccine Aged Out No l onger eligible based on patient's age to complete this topic Meningococcal Vaccine Aged Out No maci christiane eligible based on patient's age to complete this topic Pneumococcal Vaccine: Pediat rics (0 to 5 Years) and At-Risk Patients (6 to 49 Years) Aged Out No longer eligible b ased on patient's age to complete this topic RSV Immunizations Under 20 Months Aged Out No longer eligible based on patient's age to complete this topic Insurance [facility] Advance Directives * Full Code (Latest Code Status on File) Date Activated Date Inactivated Comments 07/01/2021 4:27 PM 07/03/2021 1:39 PM * Full Code Date Activated Date Inactivated Comments 05/20/2021 4:55 PM 05/21/2021 2:59 PM * Full Code Date Activated Date Inactivated Comments 03/08/2021 11:32 AM 03/08/2021 3:33 PM Care Teams Hvac Specialist Relationship Specialty Start Date End Date Fantasma Nina MD [facility] [place] [address] PCP - General FAMILY PRACTICE 03/18/20
--- OUTSIDE RECORDS SUMMARY | 2024-08-18 13:39 | XMS_ITS ---
Author Organization Unknown Address [address] [place] [phone] Phone Care Team Providers Care Home Security Alarm Installer Name Role Phone YUMIKO MCKEON Attending Unavailable NO PCP Primary Unavailable Results RESPIRATORY 4 PLEX COVID FLU RSV PCR - Collect Date/Time: 01/09/2024 19:40 [facility] ID: [id number] [id number] [place] [address], [phone] LOINC: 16845-2 Test Value Unit Reference Range Code Code System Flag SARS CoV2 PCR NEGATIVE FLU A PCR NEGATIVE FLU B PCR NEGATIVE RSV PCR NEGATIVE SEND TO [facility]? NO Social History Type Status Start Date End Date Code Code Syst em Smoking History Never smoker (Never Smoked) [id number] SNOMED CT Sex Female Hospital Discharge Instructions [...]
--- OUTSIDE RECORDS SUMMARY | 2024-08-18 13:39 | XMS_ITS | Clinical Summary ---
Author Organization [facility] Address [address] [place] [phone] Phone Care Team Providers Care Buzzsaw Operator Name Role Phone Unavailable Primary Care Provider Unavailabl e Allergies No known active allergies Medications oxyCODONE (ROXICODONE) 5 mg tabletIndications :Left tubal without intrauterine Take 1 Tablet (5 mg) by mouth every 4 hours as needed for Pain, Break-Throu gh. Max Daily Amount: 30 mg 20 Tablet 04/18/2023 11:13 AM COUNTY RECORDS MANAGEMENT OFFICER 04/18/2023 Active Active Problems Problem Noted Date [...] on file Legal Sex Female 1:57 PM COUNTY RECORDS MANAGEMENT OFFICER Gender Identity Not on file Sexual Orientation Not on file Last Filed Vital Signs Vital Sign Reading Time Taken Comments Blood Pressure 115/64 04/18/2023 12:39 PM COUNTY RECORDS MANAGEMENT OFFICER Pulse 111 04/18/2023 12:39 PM COUNTY RECORDS MANAGEMENT OFFICER Temperature 36.8 C (98.3 F) 04/18/2023 12:39 PM COUNTY RECORDS MANAGEMENT OFFICER Respiratory Rate 18 04/18/2023 12:39 PM COUNTY RECORDS MANAGEMENT OFFICER Oxygen Saturation 100% 04/18/2023 12:39 PM COUNTY RECORDS MANAGEMENT OFFICER Inhaled Oxygen Concentration - - Weight 63.5 kg (140 lb) 04/17/2023 10:28 PM COUNTY RECORDS MANAGEMENT OFFICER Height 165.1 cm (5' 5 ) 04/17/2023 10:28 PM COUNTY RECORDS MANAGEMENT OFFICER Body Mass Index 23.3 04/17/2023 10:28 PM COUNTY RECORDS MANAGEMENT OFFICER Plan of Treatment Health Maintenance Due Date Last Done Comments DTAP/TDAP/TD VACCINES (1 - Tdap) 2013 HEPATITIS B VACCINES (1 of 3 - 19+ 3-dose series) 2013 HPV/Cotest (21-29) 08/14/2015 PAP SMEAR 08/14/2015 INFLUENZA VACCINE (#1) 2023 CERVICAL CANCER SCREENING 2024 HPV/Cotest (30-65) 2024 PAP SMEAR 2024 HPV VACCINES Aged Out No longer eligi ble based on patient's age to complete this topic PNEUMOCOCCAL VACCINE 0-49 YEARS Aged Out No longer eligible based on patient's age to complete this topic Insurance [employer] BC[employer] BLUE PREFERRED Advance Directives For more information, please contact: [phone] * Full Code (Latest Code Status on File) Date Activated Date Inactivated Comments 04/17/2023 10:48 PM 04/18/2023 4:17 PM * Full Code Date Activated Date Inactivated Comments 04/17/2023 4:47 PM 04/17/2023 8:56 PM
--- OUTSIDE RECORDS SUMMARY | 2024-08-18 13:39 | XMS_ITS | Encounter Summary ---
Author Organization [facility] Address [address] [place] [address] Care Team Providers Care Internet Security Specialist Name Role Phone None, Provider Primary Care Provider Fantasma Francis MD Primary Care Provider [phone] Encounter Details Date Type Department Care Team (Late st Contact Info) Description 10/12/2018 Abstract SFL CONVERSION [address] [place] [address] , Generic Conversion, Social History Tobacco Use Types Packs/Day Years Used Date Smoking Tobacco: Never Assessed Comments Unknown Sex and Gender Information Value Date Recorded Sex Assigned at Female 07/01/2021 5:56 AM MILL ATTENDANT Legal Sex Female 9:04 AM CDT Gender Identity Female 07/01/2021 5:56 AM MILL ATTENDANT Sexual Orientation Straight 07/01/2021 5: 56 AM MILL ATTENDANT documented as of this encounter Plan of Treatment Not on file documented as of this encounter Visit Diagnoses Not on filedocumented in this encounter Additional Health Concerns Infection Onset Date Last Indicated Resolved Time COVID-19 Rule Out 03/15/2021 03/15/2021 03/15/2021 6:17 PM MILL ATTENDANT COVID-19 Rule Out 05/20/2021 05/20/2021 05/20/2021 12:22 PM MILL ATTENDANT COVID-19 Confirmed 05/20/2021 05/20/2021 12:34 AM MILL ATTENDANT COVID-19 Rule Out 06/28/2021 06/28/2021 06/29/2021 7:06 PM MILL ATTENDANT documented as of this encounter Care Teams Internet Security Specialist Relationship Specialty Start Date End Date None, Provider, PCP - General 12/07/18 03/17/20 Fantasma Nina MD [address] [place] [address] PCP - General FAMILY PRACTICE 03/18/20 documented as of this encounter
[2024-08-18 13:45] LABS: Creatinine Urine 33.4 mg/dL; Total Protein Urine Random 14 mg/dL; Ur Ttl Prot Creatinine Ratio 0.42 mg/mg (0-0.20)
[2024-08-18 13:54] LABS: Alanine Aminotransferase 24 U/L (6-35); Albumin Level 3.6 g/dL (3.5-5.1); Alkaline Phosphatase 146 U/L (38-126); Anion Gap 9 mmol/L (4-12); Aspartate Amino Transferase 29 U/L (14-36); Bilirubin,Total 0.4 mg/dL (0.2-1.3); Blood Urea Nitrogen 7 mg/dL (7-17); Calcium 8.8 mg/dL (8.4-10.2); Carbon Dioxide 21 mmol/L (22-30); Chloride 104 mmol/L (98-107); Estimated CRCL calculation 130 ml/min; Estimated Glomerular Filt Rate > 60; Glucose 54 mg/dL (65-110); Potassium 4.1 mmol/L (3.4-5.0); Sodium 134 mmol/L (137-145); Uric Acid 2.7 mg/dL (2.5-7.5)
[2024-08-18 14:28] LABS: Glucose Point of Care 120 mg/dl (65-105)
--- NOTE | 2024-08-18 14:38 | PC.NURSE ---
Paged Dr. Santiago
--- NOTE | 2024-08-18 14:43 | PC.NURSE ---
Dr. Santiago responded to page. Notified him of BPs 110s/70s, liver enzymes WNL, Critical blood glucose that is now resolved and 4+ bacteria noted in urine. Squamos cells present. Orders received to discharge patient and for pt. to keep nexxt scheduled appointment.
== END 2024-08-18 14:53 | disposition home or self-care (01) ==
LOC: ANHOBOP 12:30 → ANHOBPP 12:31
PROVIDERS: Visit Provider Obstetrics & Gynecology
DX: O13.9 Gestational [pregnancy-induced] hypertension without significant proteinuria, unspecified trimester (principal); Z3A.00 Weeks of gestation of pregnancy not specified
CPT/HCPCS: 36415; 59025; 80053; 81001; 82570; 82948; 84156; 84550; 85025; 99199

== ENCOUNTER 2024-09-25 11:52 | Inpatient (IN) | payer BC, SELFPAY ==
[2024-09-25] VITALS (44 sets, daily range): BP systolic 96–153; BP diastolic 47–94; PULSE 62–133; RESP 12–19; TEMP 36.2–36.6; O2SAT 97–100; BMI 33.3
--- OUTSIDE RECORDS SUMMARY | 2024-09-25 11:59 | XMS_ITS ---
Author Organization Unknown Address [address] [place] [phone] Phone Care Team Providers Care Call Specialist Name Role Phone JUDMONIQUE TIERNEY Attending Unavailable NATHAN Peralta Primary Unavailable Results URINALYSIS w/Microscopy/C&S if indicated - Collect Date/Time: 06/08/2024 12:35 [facility] [id number] [address] [place] [address], [phone] LOINC: 17158-9 Test Value Unit Reference Range Code Code System Flag UR SOURCE VOIDED 23693-6 LOINC COLOR STRAW YELLOW 5778-6 LOINC CLARITY SL CLOUDY CLEAR 95435-8 LOINC SPEC GRAVITY 1.010 1.000-1.030 5811-5 LOINC PH 6.0 5.0 - 6.5 5803-2 LOINC LEUK EST NEGATIVE NEGATIVE 5799-2 LOINC NITRATE NEGATIVE NEGATIVE PROTEIN NEGATIVE NEGATIVE 5804-0 LOINC GLUCOSE NEGATIVE NEGATIVE 20554-3 LOINC KETONES NEGATIVE NEGATIVE 27208-0 LOINC UROBILINOGEN 0.2 0.2 - 1.0 5818-0 LOINC BILIRUBIN NEGATIVE NEGATIVE 56436-1 LOINC BLOOD NEGATIVE NEGATIVE 69542-7 LOINC WBC 0-2 0 - 2 29540-1 LOINC RBC 0-2 0 - 2 11407-5 LOINC SQ EPITHELIAL MODERATE RARE-FEW BACTERIA FEW NONE SEEN 85768-2 LOINC MUCUS NONE SEEN NONE SEEN 8247-9 LOINC YEAST NOT PRESENT NOT PRESENT 76924-2 LOINC TRICHOMONAS NOT PRESENT NOT PRESENT 15311-8 LOINC SPERMATOZOA NOT PRESENT NOT PRESENT 64693-8 LOINC CASTS NOT PRESENT 75541-8 LOINC CRYSTALS NOT PRESENT 51286-9 LOINC CULTURE? NO 8251-1 LOINC DIAGNOSIS N/A CBC W/ DIFF - Collect Date/T jenni: 06/08/2024 09:43 [facility] [id number] [address] [place], [place], [phone] LOINC: 02169-4 Test Value Unit Reference Range Code Code System Flag WBC 10.4 10^3uL L=4.8 H=10.8 RBC 3.86 10^6uL L=4.20 H=5.40 L HEMOGLOBIN 10.2 g/dL L=12.0 H=16.0 718-7 LOINC L HEMATOCRIT 31.8 VOL% L=37.0 H=47.0 4544-3 LOINC L MCV 82.4 fL L=81.0 H=99.0 MCH 26.4 pg L=27.0 H=32.0 L MCHC 32.1 g/dL L=32.0 H=36.0 PLATELETS 325 10^3uL L=100 H=400 76051-4 LOINC RDW 15.0 % L=11.7 H=15.5 %GRAN 75.9 % L=40.0 H=70.0 71577-1 LOINC H %LYMPH 9.5 % L=20.0 H=45.0 736-9 LOINC L %MONO 12.6 % L=2.0 H=10.0 97322-1 LOINC H %EOS 0.9 % L=0.0 H=6.0 713-8 LOINC %BASO 0.4 % L=0.0 H=3.0 706-2 LOINC #NEUT 7.9 10^3uL L=1.9 H=7.6 19444-0 LOINC H #LYMPH 1.0 10^3uL L=0.9 H=4.9 26831-3 LOINC #MONO 1.3 10^3uL L=0.1 H=0.9 22258-2 LOINC H #EOS 0.1 10^3uL L=0.0 H=0.6 712-0 LOINC #BASO 0.04 10^3uL L=0.00 H=0.10 93089-0 LOINC #IM GRANS 0.1 10^3uL L=0.0 H=7.0 75756-7 LOINC %IM GRANS 0.7 % L=0.0 H=5.0 87704-1 LOINC %NRB 0.0 L=0.0 H=0.2 14399-7 LOINC #NRB 0.000 L=0.000 H=0.012 87951-6 LOINC MANUAL DIFF NOT INDICATED RBC MORPH NOT INDICATED COMPREHENSIVE METABOLIC PANE L - Collect Date/Time: 06/08/2024 09:43 [facility] [id number] [address] [place], [place], [phone] LOINC: 32574-3 Test Value Unit Reference Range Code Code [...] 2028-9 LOINC ANION GAP 11 L=10 H=20 68538-1 LOINC OSMOLALITY 278 mOs/kG L=280 H=296 33569-0 LOINC L BUN/CREAT 10.0 3097-3 LOINC CALCIUM 8.5 mg/dL L=8.3 H=10.5 38610-7 LOINC AST 25 U/L L=15 H=46 1920-8 LOINC ALT 13 U/L L=9 H=72 1742-6 LOINC ALKALINE PHOS 64 U/L L=38 H=126 6768-6 LOINC TOTAL BILI 0.2 mg/dL L=0.2 H=1.3 1975-2 LOINC ALBUMIN 3.1 G/dL L=3.5 H=5.0 1751-7 LOINC L TOTAL PROTEIN 6.8 g/L L=6.3 H=8.2 2885-2 LOINC A/G RATIO 0.8 93146-8 LOINC AGE 28 12317-4 LOINC eGFR NON-AFR 155 ml/min eGFR AFR AMER 188 ml/min PROTIME - Collect Date/Time: 06/08/2024 09:43 [facility] ID: [id number] [address] [place] [address], [phone] LOINC: 96454-0 Test Value Unit Reference Range Code Code System Flag PT 9.9 Sec L=9.7 H=11.7 78255-7 LOINC INR 0.9 Sec L=0.9 H=1.1 41711-8 LOINC PTT - Collect Date/Time: 06/2024 09:43 [facility] ID: [id number] [address] [place] [address], [phone] LOINC: 33206-5 Test Value Unit Reference Range Code Code System Flag PTT 25.0 Sec L=23.0 H=31.2 4 PLEX RESPIRATORY COVID FLU RSV PCR - Collect Date/Time: 06/08/2024 09:40 [facility] ID: [id number] [address] [place] [address], [phone] LOINC: 11885-8 Test Value Unit Reference Range Code Code System Flag SARS CoV2 PCR NEGATIVE FLU A PCR POSITIVE A FLU B PCR NEGATIVE RSV PCR NEGATIVE SEND TO [facility]? YES Social History Type Status Start Date End Date Code Code Syst em Smoking History Never smoker (Never Smoked) [id number] SNOMED CT Sex Female Hospital Discharge Instructions [...]
--- OUTSIDE RECORDS SUMMARY | 2024-09-25 11:59 | XMS_ITS | Clinical Summary ---
Author Organization [facility] Address [address] [place] [phone] Phone Care Team Providers Care Research Hydrologist Name Role Phone Unavailable Primary Care Provider Unavailabl e Allergies No known active allergies Medications oxyCODONE (ROXICODONE) 5 mg tabletIndications :Left tubal without intrauterine Take 1 Tablet (5 mg) by mouth every 4 hours as needed for Pain, Break-Throu gh. Max Daily Amount: 30 mg 20 Tablet 04/18/2023 11:13 AM INDUSTRIAL MILLWRIGHT 04/18/2023 Active Active Problems Problem Noted Date Diagnosed Date WI: ectopic , s/p lsc 04/17/2023 Overview (04/18/2023): RIGHT ectopic aith RIGHT salpingectomy Social History Tobacco Use Types Packs/Day Years [...] on file Legal Sex Female 1:57 PM INDUSTRIAL MILLWRIGHT Gender Identity Not on file Sexual Orientation Not on file Last Filed Vital Signs Vital Sign Reading Time Taken Comments Blood Pressure 115/64 04/18/2023 12:39 PM INDUSTRIAL MILLWRIGHT Pulse 111 04/18/2023 12:39 PM INDUSTRIAL MILLWRIGHT Temperature 36.8 C (98.3 F) 04/18/2023 12:39 PM INDUSTRIAL MILLWRIGHT Respiratory Rate 18 04/18/2023 12:39 PM INDUSTRIAL MILLWRIGHT Oxygen Saturation 100% 04/18/2023 12:39 PM INDUSTRIAL MILLWRIGHT Inhaled Oxygen Concentration - - Weight 63.5 kg (140 lb) 04/17/2023 10:28 PM INDUSTRIAL MILLWRIGHT Height 165.1 cm (5' 5 ) 04/17/2023 10:28 PM INDUSTRIAL MILLWRIGHT Body Mass Index 23.3 04/17/2023 10:28 PM INDUSTRIAL MILLWRIGHT Plan of Treatment Health Maintenance Due Date Last Done Comments DTAP/TDAP/TD VACCINES (1 - Tdap) 2013 HEPATITIS B VACCINES (1 of 3 - 19+ 3-dose series) 2013 HPV/Cotest (21-29) 08/14/2015 INFLUENZA VACCINE (#1) 2023 CERVICAL CANCER SCREENING 2024 HPV/Cotest (30-65) 2024 PAP SMEAR 2024 HPV VACCINES Aged Out No longer eligi ble based on patient's age to complete this topic Insurance [employer] BLUE PREFERRED Advance Directives For more information, please contact: [phone] * Full Code (Latest Code Status on File) Date Activated Date Inactivated Comments 04/17/2023 10:48 PM 04/18/2023 4:17 PM * Full Code Date Activated Date Inactivated Comments 04/17/2023 4:47 PM 04/17/2023 8:56 PM
--- OUTSIDE RECORDS SUMMARY | 2024-09-25 11:59 | XMS_ITS ---
Author Organization Unknown Address [address] [place] [phone] Phone Care Team Providers Care Food Preparation Worker Name Role Phone YUMIKO MCKEON Attending Unavailable NO PCP Primary Unavailable Results RESPIRATORY 4 PLEX COVID FLU RSV PCR - Collect Date/Time: 01/09/2024 19:40 [facility] ID: [id number] [address] [place] [address], [id number] LOINC: 12002-1 Test Value Unit Reference Range Code Code System Flag SARS CoV2 PCR NEGATIVE FLU A PCR NEGATIVE FLU B PCR NEGATIVE RSV PCR NEGATIVE SEND TO [facility]? NO Social History Type Status Start Date End Date Code Code Syst em Smoking History Never smoker (Never Smoked) [id number] SNOMED CT Sex Female Hospital Discharge Instructions [...]
--- OUTSIDE RECORDS SUMMARY | 2024-09-25 11:59 | XMS_ITS | Continuity of Care Document ---
Author Organization [facility] Address [address] [place] [address] Phone Care Team Providers Care Taxonomist Name Role Phone Unavailable Unavailable Unavailable Advance Directives Directive Yes / No Effective Date File Name No Information Encounters Encounter Description Practice Location Reason(s) For Visit Diagnoses Date Provider Providers Copied on Encounter [facility], [address], [place], [place], [id number], [place] tel:[phone] DSAM No Information 3 No Information Referring Provider: Kannan [address], [place], [address]. tel:[phone] Family History Family Member Type Diagnosis Age At Onset No Information Payers Payer name Insurance type Covered constitution party ID Authorariellaa ayde(s) [facility] [id number] Social History Type Description Quantity Date Captured Comments Sex Female Smoking Status No Information Chief Complaint And Reason For Visit No Information History Of Present Illness Encounter Date Complaint History Of Prese nt Illness No Information Instructions Date Instruction Additional Infor mation No Information Assessments Type Assessment Date No Information
--- OUTSIDE RECORDS SUMMARY | 2024-09-25 12:34 | XMS_ITS ---
Author Organization Unknown Address [address] [place] [phone] Phone Care Team Providers Care Wood Tile Installation Helper Name Role Phone CHRIS MONET Attending Unavailable NATHAN Peralta Primary Unavailable Results URINALYSIS w/Microscopy/C&S if indicated - Collect Date/Time: 06/08/2024 12:35 [facility] ID: [id number] [address] [place], [place], [id number] LOINC: 93849-8 Test Value Unit Reference Range Code Code System Flag UR SOURCE VOIDED 96699-3 LOINC COLOR STRAW YELLOW 5778-6 LOINC CLARITY SL CLOUDY CLEAR 54662-8 LOINC SPEC GRAVITY 1.010 1.000-1.030 5811-5 LOINC PH 6.0 5.0 - 6.5 5803-2 LOINC LEUK EST NEGATIVE NEGATIVE 5799-2 LOINC NITRATE NEGATIVE NEGATIVE PROTEIN NEGATIVE NEGATIVE 5804-0 LOINC GLUCOSE NEGATIVE NEGATIVE 99146-6 LOINC KETONES NEGATIVE NEGATIVE 92423-3 LOINC UROBILINOGEN 0.2 0.2 - 1.0 5818-0 LOINC BILIRUBIN NEGATIVE NEGATIVE 91830-5 LOINC BLOOD NEGATIVE NEGATIVE 11782-8 LOINC WBC 0-2 0 - 2 97792-8 LOINC RBC 0-2 0 - 2 50809-6 LOINC SQ EPITHELIAL MODERATE RARE-FEW BACTERIA FEW NONE SEEN 03128-1 LOINC MUCUS NONE SEEN NONE SEEN 8247-9 LOINC YEAST NOT PRESENT NOT PRESENT 67067-4 LOINC TRICHOMONAS NOT PRESENT NOT PRESENT 12561-0 LOINC SPERMATOZOA NOT PRESENT NOT PRESENT 55864-5 LOINC CASTS NOT PRESENT 72446-3 LOINC CRYSTALS NOT PRESENT 85054-4 LOINC CULTURE? NO 8251-1 LOINC DIAGNOSIS N/A CBC W/ DIFF - Collect Date/T jenni: 06/08/2024 09:43 [facility] ID: [id number] [address] [place], [place], [id number] LOINC: 71772-3 Test Value Unit Reference Range Code Code System Flag WBC 10.4 10^3uL L=4.8 H=10.8 RBC 3.86 10^6uL L=4.20 H=5.40 L HEMOGLOBIN 10.2 g/dL L=12.0 H=16.0 718-7 LOINC L HEMATOCRIT 31.8 VOL% L=37.0 H=47.0 4544-3 LOINC L MCV 82.4 fL L=81.0 H=99.0 MCH 26.4 pg L=27.0 H=32.0 L MCHC 32.1 g/dL L=32.0 H=36.0 PLATELETS 325 10^3uL L=100 H=400 38742-9 LOINC RDW 15.0 % L=11.7 H=15.5 %GRAN 75.9 % L=40.0 H=70.0 50551-1 LOINC H %LYMPH 9.5 % L=20.0 H=45.0 736-9 LOINC L %MONO 12.6 % L=2.0 H=10.0 49877-8 LOINC H %EOS 0.9 % L=0.0 H=6.0 713-8 LOINC %BASO 0.4 % L=0.0 H=3.0 706-2 LOINC #NEUT 7.9 10^3uL L=1.9 H=7.6 21655-1 LOINC H #LYMPH 1.0 10^3uL L=0.9 H=4.9 59895-0 LOINC #MONO 1.3 10^3uL L=0.1 H=0.9 44078-3 LOINC H #EOS 0.1 10^3uL L=0.0 H=0.6 712-0 LOINC #BASO 0.04 10^3uL L=0.00 H=0.10 58737-4 LOINC #IM GRANS 0.1 10^3uL L=0.0 H=7.0 68621-3 LOINC %IM GRANS 0.7 % L=0.0 H=5.0 07958-0 LOINC %NRB 0.0 L=0.0 H=0.2 87836-7 LOINC #NRB 0.000 L=0.000 H=0.012 41354-9 LOINC MANUAL DIFF NOT INDICATED RBC MORPH NOT INDICATED COMPREHENSIVE METABOLIC PANE L - Collect Date/Time: 06/08/2024 09:43 [facility] ID: [id number] [address] [place], [place], [id number] LOINC: 06705-2 Test Value Unit Reference Range Code Code [...] 2028-9 LOINC ANION GAP 11 L=10 H=20 84344-6 LOINC OSMOLALITY 278 mOs/kG L=280 H=296 99144-2 LOINC L BUN/CREAT 10.0 3097-3 LOINC CALCIUM 8.5 mg/dL L=8.3 H=10.5 34833-1 LOINC AST 25 U/L L=15 H=46 1920-8 LOINC ALT 13 U/L L=9 H=72 1742-6 LOINC ALKALINE PHOS 64 U/L L=38 H=126 6768-6 LOINC TOTAL BILI 0.2 mg/dL L=0.2 H=1.3 1975-2 LOINC ALBUMIN 3.1 G/dL L=3.5 H=5.0 1751-7 LOINC L TOTAL PROTEIN 6.8 g/L L=6.3 H=8.2 2885-2 LOINC A/G RATIO 0.8 71963-2 LOINC AGE 28 73510-0 LOINC eGFR NON-AFR 155 ml/min eGFR AFR AMER 188 ml/min PROTIME - Collect Date/Time: 06/08/2024 09:43 [facility] ID: [id number] [address] [place] [address], [id number] LOINC: 79319-6 Test Value Unit Reference Range Code Code System Flag PT 9.9 Sec L=9.7 H=11.7 95729-0 LOINC INR 0.9 Sec L=0.9 H=1.1 07254-0 LOINC PTT - Collect Date/Time: 06/2024 09:43 [facility] ID: [id number] [address] [place] [address], [id number] LOINC: 63815-7 Test Value Unit Reference Range Code Code System Flag PTT 25.0 Sec L=23.0 H=31.2 4 PLEX RESPIRATORY COVID FLU RSV PCR - Collect Date/Time: 06/08/2024 09:40 [facility] ID: [id number] [address] [place] [address], [id number] LOINC: 15859-7 Test Value Unit Reference Range Code Code System Flag SARS CoV2 PCR NEGATIVE FLU A PCR POSITIVE A FLU B PCR NEGATIVE RSV PCR NEGATIVE SEND TO [facility]? YES Social History Type Status Start Date End Date Code Code Syst em Smoking History Never smoker (Never Smoked) 629645363 SNOMED CT Sex Female Hospital Discharge Instructions [...]
--- OUTSIDE RECORDS SUMMARY | 2024-09-25 12:34 | XMS_ITS | Continuity of Care Document ---
Author Organization [facility] Address [address] [place] [address] Phone Care Team Providers Care Senior Policy Advisor Name Role Phone Unavailable Unavailable Unavailable Advance Directives Directive Yes / No Effective Date File Name No Information Encounters Encounter Description Practice Location Reason(s) For Visit Diagnoses Date Provider Providers Copied on Encounter [facility], [address], [place], [place], [id number], [place] tel:[phone] DSAM No Information 3 No Information Referring Provider: Kannan [address], [place], [address]. tel:[phone] Family History Family Member Type Diagnosis Age At Onset No Information Payers Payer name Insurance type Covered constitution party ID Authorariellaa ayde(s) [facility] [id number] Social History Type Description Quantity Date Captured Comments Sex Female Smoking Status No Information Chief Complaint And Reason For Visit No Information History Of Present Illness Encounter Date Complaint History Of Prese nt Illness No Information Instructions Date Instruction Additional Infor mation No Information Assessments Type Assessment Date No Information
--- OUTSIDE RECORDS SUMMARY | 2024-09-25 12:34 | XMS_ITS | Clinical Summary ---
Author Organization [facility] Address [address] [place] [phone] Phone Care Team Providers Care Secondary School Teacher Librarian Name Role Phone Unavailable Primary Care Provider Unavailabl e Allergies No known active allergies Medications oxyCODONE (ROXICODONE) 5 mg tabletIndications :Left tubal without intrauterine Take 1 Tablet (5 mg) by mouth every 4 hours as needed for Pain, Break-Throu gh. Max Daily Amount: 30 mg 20 Tablet 04/18/2023 11:13 AM SOLUTIONS CONSULTANT 04/18/2023 Active Active Problems Problem Noted Date [...] on file Legal Sex Female 1:57 PM SOLUTIONS CONSULTANT Gender Identity Not on file Sexual Orientation Not on file Last Filed Vital Signs Vital Sign Reading Time Taken Comments Blood Pressure 115/64 04/18/2023 12:39 PM SOLUTIONS CONSULTANT Pulse 111 04/18/2023 12:39 PM SOLUTIONS CONSULTANT Temperature 36.8 C (98.3 F) 04/18/2023 12:39 PM SOLUTIONS CONSULTANT Respiratory Rate 18 04/18/2023 12:39 PM SOLUTIONS CONSULTANT Oxygen Saturation 100% 04/18/2023 12:39 PM SOLUTIONS CONSULTANT Inhaled Oxygen Concentration - - Weight 63.5 kg (140 lb) 04/17/2023 10:28 PM SOLUTIONS CONSULTANT Height 165.1 cm (5' 5 ) 04/17/2023 10:28 PM SOLUTIONS CONSULTANT Body Mass Index 23.3 04/17/2023 10:28 PM SOLUTIONS CONSULTANT Plan of Treatment Health Maintenance Due Date [...] Advance Directives For more information, please contact: [phone] * Full Code (Latest Code Status on File) Date Activated Date Inactivated Comments 04/17/2023 10:48 PM 04/18/2023 4:17 PM * Full Code Date Activated Date Inactivated Comments 04/17/2023 4:47 PM 04/17/2023 8:56 PM
--- OUTSIDE RECORDS SUMMARY | 2024-09-25 12:34 | XMS_ITS ---
Author Organization Unknown Address [address] [place] [phone] Phone Care Team Providers Care Welder/Installer Name Role Phone YUMIKO MCKEON Attending Unavailable NO PCP Primary Unavailable Results RESPIRATORY 4 PLEX COVID FLU RSV PCR - Collect Date/Time: 01/09/2024 19:40 [facility] ID: [id number] [address] [place] [address], [id number] LOINC: 31186-2 Test Value Unit Reference Range Code Code System Flag SARS CoV2 PCR NEGATIVE FLU A PCR NEGATIVE FLU B PCR NEGATIVE RSV PCR NEGATIVE SEND TO [facility]? NO Social History Type Status Start Date End Date Code Code Syst em Smoking History Never smoker (Never Smoked) [id number] SNOMED CT Sex Female Hospital Discharge Instructions [...]
--- NOTE | 2024-09-25 12:45 | PC.NURSE ---
Faint line present on ROM plus, Dr. Santiago paged to notify
--- NOTE | 2024-09-25 12:47 | PC.NURSE ---
Dr. Santiago paged to update on patient admission and status, L
--- NOTE | 2024-09-25 12:52 | PC.NURSE ---
Dr. Santiago called RN, updated on patient admission at 11:52 c/o ctx since 0000 today. Patient looks uncomfortable, is diaphoretic, nauseous and actively vomitting. Ctx irregularly q2-6minutes, FHT reassuring, ROM plus resulted with faint line. Would not like SASKIA at this time, orders received for 1L LR bolus and to update Dr. Santiago in 30minutes.
--- NOTE | 2024-09-25 13:14 | P.HP_ITS ---
H&P: HPI History of Present Illness Date/Time: 09/25/24 13:14 Chief Complaint: Contractions Narrative: 29 y/o at 37 1/7 weeks with painful contractions, nausea, vomiting. GBS neg. Prior x 2. Prior right salpingectomy for ectopic, would like repeat with left salpingectomy for permanent contraception. Review of Systems Review of Systems: All systems reviewed & are unremarkable except as noted in HPI and below PMFSH Past Medical History Medical History (Updated 09/25/24 @ 13:18 by Flash Santiago MD) NATALIE (iron deficiency anemia) Surgical History Surgical History (Updated 09/25/24 @ 13:18 by Flash Santiago MD) History of salpingectomy History of delivery Family History Family History Other Unknown family medical history Social History Social History (Updated 06/08/24 @ 20:31 by Miki Doyle RN) Smoking status: Never smoker Second hand tobacco smoke exposure: No Alcohol intake: never Substance use: never Substance use type: does not use Do You Feel Safe in your Home?: Yes Lack of Transportation: No Lack of Food: Never True Current Housing: I Have Housing Concerned About Future Housing: No Difficulty Paying Gas/Electric Bills: No Difficulty Paying for Meds: No Currently Unemployed: No Education: Bachelor's Degree Difficulty w/ Childcare or Family Care: No Living arrangements: with family Occupation/Education: occupation Gender identity (if verbalized by the patient): Female Sexual Orientation (if Verbalized by the Patient): Straight or Heterosexual Spiritual care concerns: No Agree to blood products: Yes Meds Home Medications and Allergies Home Medications ?Medication ?Instructions ?Recorded ?Confirmed ?Type No Home Medications 09/20/24 09/20/24 History Allergies Allergy/AdvReac Type Severity Reaction Status Date / Time No Known Allergies Allergy Verified 09/20/24 14:41 Vital Signs Vital Signs - 24 hr 09/25/24 12:07 Pulse Rate 130 H Blood Pressure 124/84 Pulse Oximetry 98 Exam Const: Orientation/consciousness: patient oriented x3 Other: Well-developed, well-nourished female in no acute distress. Neck: Thyroid: thyroid normal Lymphatic: no lymphadenopathy noted (in neck, axilla or inguinal nodes) Resp: Effort & Inspection: normal respiratory effort Auscultation: clear to auscultation bilaterally Cardio: Rate: regular rate Rhythm: regular rhythm Heart sounds: S1 normal heart sound present and S2 normal heart sound present GI: Other: ABD: Soft, nontender, nondistended, gravid. NST reactive. TOCO: contractions every 2-4 min. Contractions palpate strong. No guarding or rebound tenderness. No hepatosplenomegaly. : General: Yes no CVA tenderness Other: Cervix 1/th per RN Back/Spine/Pelvis: Back: no CVA tenderness Skin: General skin exam: normal color and no rashes or lesions noted Neuro: General: patient oriented x3 Extrem: Other: Extremities: nontender with no edema Psych: Mental Status: mental status grossly normal Affect: normal affect Assessment and Plan Assessment and plan (1) Active labor at term: Status: Acute Assessment and Plan: A: IUP at 37 1/7 weeks with labor, prior , desired sterility. P: Offered repeat with concurrent left salpingectomy. She understands there are temporary methods of contraception available to her. She understands that there are nonsurgical options as well as surgical options. She understands that salpingectomy will render her permanently sterile. She understands that there is a failure rate associated with tubal sterilization, as well as an inherent ectopic gestation risk. Furthermore, she understands risks of surgery to include risks of anesthesia, risks of pain, infection, bleeding, blood products, thromboembolic phenomena and damage to adjacent structures such as b owel, bladder, ureters, blood vessels and nerves. She understands all these risks and elects to proceed with repeat and left salpingectomy. (2) Unwanted fertility: Code(s): Z30.09 - Encounter for other general counseling and advice on contraception Status: Acute
[2024-09-25] MEDS: LACTATED RINGERS 1,000 ML 999 ML IV CONT (13:15)
--- NOTE | 2024-09-25 13:19 | WPDHPUPDATE1 ---
History and Physical Update Update Date/Time: 09/25/24 13:19 History and Physical has been reviewed, including an updated exam of the patient. There are NO changes in the patient's condition. Risks, benefits, and alternatives have been discussed and questions answered. Patient agrees to proceed with procedure.
--- OUTSIDE RECORDS SUMMARY | 2024-09-25 13:26 | XMS_ITS ---
Author Organization Unknown Address [address] [place] [phone] Phone Care Team Providers Care Head Rigger Name Role Phone JUDMONIQUE TIERNEY Attending Unavailable NATHAN Peralta Primary Unavailable Results URINALYSIS w/Microscopy/C&S if indicated - Collect Date/Time: 06/08/2024 12:35 [facility] ID: [id number] [address] [place] [address], [id number] LOINC: 05243-6 Test Value Unit Reference Range Code Code System Flag UR SOURCE VOIDED 81284-2 LOINC COLOR STRAW YELLOW 5778-6 LOINC CLARITY SL CLOUDY CLEAR 15723-9 LOINC SPEC GRAVITY 1.010 1.000-1.030 5811-5 LOINC PH 6.0 5.0 - 6.5 5803-2 LOINC LEUK EST NEGATIVE NEGATIVE 5799-2 LOINC NITRATE NEGATIVE NEGATIVE PROTEIN NEGATIVE NEGATIVE 5804-0 LOINC GLUCOSE NEGATIVE NEGATIVE 63823-5 LOINC KETONES NEGATIVE NEGATIVE 03856-3 LOINC UROBILINOGEN 0.2 0.2 - 1.0 5818-0 LOINC BILIRUBIN NEGATIVE NEGATIVE 34165-7 LOINC BLOOD NEGATIVE NEGATIVE 66447-9 LOINC WBC 0-2 0 - 2 80909-2 LOINC RBC 0-2 0 - 2 04669-6 LOINC SQ EPITHELIAL MODERATE RARE-FEW BACTERIA FEW NONE SEEN 07700-1 LOINC MUCUS NONE SEEN NONE SEEN 8247-9 LOINC YEAST NOT PRESENT NOT PRESENT 95583-0 LOINC TRICHOMONAS NOT PRESENT NOT PRESENT 58674-5 LOINC SPERMATOZOA NOT PRESENT NOT PRESENT 32659-0 LOINC CASTS NOT PRESENT 74471-8 LOINC CRYSTALS NOT PRESENT 69257-7 LOINC CULTURE? NO 8251-1 LOINC DIAGNOSIS N/A CBC W/ DIFF - Collect Date/T jenni: 06/08/2024 09:43 [facility] ID: [id number] [address] [place], [place], [id number] LOINC: 24456-1 Test Value Unit Reference Range Code Code System Flag WBC 10.4 10^3uL L=4.8 H=10.8 RBC 3.86 10^6uL L=4.20 H=5.40 L HEMOGLOBIN 10.2 g/dL L=12.0 H=16.0 718-7 LOINC L HEMATOCRIT 31.8 VOL% L=37.0 H=47.0 4544-3 LOINC L MCV 82.4 fL L=81.0 H=99.0 MCH 26.4 pg L=27.0 H=32.0 L MCHC 32.1 g/dL L=32.0 H=36.0 PLATELETS 325 10^3uL L=100 H=400 50962-8 LOINC RDW 15.0 % L=11.7 H=15.5 %GRAN 75.9 % L=40.0 H=70.0 76722-3 LOINC H %LYMPH 9.5 % L=20.0 H=45.0 736-9 LOINC L %MONO 12.6 % L=2.0 H=10.0 01992-2 LOINC H %EOS 0.9 % L=0.0 H=6.0 713-8 LOINC %BASO 0.4 % L=0.0 H=3.0 706-2 LOINC #NEUT 7.9 10^3uL L=1.9 H=7.6 24706-3 LOINC H #LYMPH 1.0 10^3uL L=0.9 H=4.9 45132-0 LOINC #MONO 1.3 10^3uL L=0.1 H=0.9 25766-2 LOINC H #EOS 0.1 10^3uL L=0.0 H=0.6 712-0 LOINC #BASO 0.04 10^3uL L=0.00 H=0.10 33985-0 LOINC #IM GRANS 0.1 10^3uL L=0.0 H=7.0 17676-7 LOINC %IM GRANS 0.7 % L=0.0 H=5.0 29031-6 LOINC %NRB 0.0 L=0.0 H=0.2 03793-6 LOINC #NRB 0.000 L=0.000 H=0.012 08838-0 LOINC MANUAL DIFF NOT INDICATED RBC MORPH NOT INDICATED COMPREHENSIVE METABOLIC PANE L - Collect Date/Time: 06/08/2024 09:43 [facility] ID: [id number] [address] [place], [place], [id number] LOINC: 79330-3 Test Value Unit Reference Range Code Code [...] 2028-9 LOINC ANION GAP 11 L=10 H=20 31463-5 LOINC OSMOLALITY 278 mOs/kG L=280 H=296 20156-2 LOINC L BUN/CREAT 10.0 3097-3 LOINC CALCIUM 8.5 mg/dL L=8.3 H=10.5 55841-6 LOINC AST 25 U/L L=15 H=46 1920-8 LOINC ALT 13 U/L L=9 H=72 1742-6 LOINC ALKALINE PHOS 64 U/L L=38 H=126 6768-6 LOINC TOTAL BILI 0.2 mg/dL L=0.2 H=1.3 1975-2 LOINC ALBUMIN 3.1 G/dL L=3.5 H=5.0 1751-7 LOINC L TOTAL PROTEIN 6.8 g/L L=6.3 H=8.2 2885-2 LOINC A/G RATIO 0.8 40685-6 LOINC AGE 28 59815-2 LOINC eGFR NON-AFR 155 ml/min eGFR AFR AMER 188 ml/min PROTIME - Collect Date/Time: 06/08/2024 09:43 [facility] ID: [id number] [address] [place] [address], [id number] LOINC: 23154-0 Test Value Unit Reference Range Code Code System Flag PT 9.9 Sec L=9.7 H=11.7 74446-4 LOINC INR 0.9 Sec L=0.9 H=1.1 26017-5 LOINC PTT - Collect Date/Time: 06/2024 09:43 [facility] ID: [id number] [address] [place] [address], [id number] LOINC: 63127-3 Test Value Unit Reference Range Code Code System Flag PTT 25.0 Sec L=23.0 H=31.2 4 PLEX RESPIRATORY COVID FLU RSV PCR - Collect Date/Time: 06/08/2024 09:40 [facility] ID: [id number] [address] [place] [address], [id number] LOINC: 13986-7 Test Value Unit Reference Range Code Code System Flag SARS CoV2 PCR NEGATIVE FLU A PCR POSITIVE A FLU B PCR NEGATIVE RSV PCR NEGATIVE SEND TO [facility]? YES Social History Type Status Start Date End Date Code Code Syst em Smoking History Never smoker (Never Smoked) [id number] SNOMED CT Sex Female Hospital Discharge Instructions [...]
--- OUTSIDE RECORDS SUMMARY | 2024-09-25 13:26 | XMS_ITS | Clinical Summary ---
Author Organization [facility] Address [address] [place] [phone] Phone Care Team Providers Care Mortgage Loan Assistant Name Role Phone Unavailable Primary Care Provider Unavailabl e Allergies No known active allergies Medications oxyCODONE (ROXICODONE) 5 mg tabletIndications :Left tubal without intrauterine Take 1 Tablet (5 mg) by mouth every 4 hours as needed for Pain, Break-Throu gh. Max Daily Amount: 30 mg 20 Tablet 04/18/2023 11:13 AM HAT DESIGNER 04/18/2023 Active Active Problems Problem Noted Date [...] on file Legal Sex Female 1:57 PM HAT DESIGNER Gender Identity Not on file Sexual Orientation Not on file Last Filed Vital Signs Vital Sign Reading Time Taken Comments Blood Pressure 115/64 04/18/2023 12:39 PM HAT DESIGNER Pulse 111 04/18/2023 12:39 PM HAT DESIGNER Temperature 36.8 C (98.3 F) 04/18/2023 12:39 PM HAT DESIGNER Respiratory Rate 18 04/18/2023 12:39 PM HAT DESIGNER Oxygen Saturation 100% 04/18/2023 12:39 PM HAT DESIGNER Inhaled Oxygen Concentration - - Weight 63.5 kg (140 lb) 04/17/2023 10:28 PM HAT DESIGNER Height 165.1 cm (5' 5 ) 04/17/2023 10:28 PM HAT DESIGNER Body Mass Index 23.3 04/17/2023 10:28 PM HAT DESIGNER Plan of Treatment Health Maintenance Due Date [...] Advance Directives For more information, please contact: [phone] * Full Code (Latest Code Status on File) Date Activated Date Inactivated Comments 04/17/2023 10:48 PM 04/18/2023 4:17 PM * Full Code Date Activated Date Inactivated Comments 04/17/2023 4:47 PM 04/17/2023 8:56 PM
--- OUTSIDE RECORDS SUMMARY | 2024-09-25 13:26 | XMS_ITS | Continuity of Care Document ---
Author Organization [facility] Address [address] [place] [address] Phone Care Team Providers Care National Stormwater Leader Name Role Phone Unavailable Unavailable Unavailable Advance Directives Directive Yes / No Effective Date File Name No Information Encounters Encounter Description Practice Location Reason(s) For Visit Diagnoses Date Provider Providers Copied on Encounter [facility], [address], [place], [place], [id number], [place] tel:[phone] DSAM No Information 3 No Information Referring Provider: Kannan [address], [place], [address]. tel:[phone] Family History Family Member Type Diagnosis Age At Onset No Information Payers Payer name Insurance type Covered green party ID Authorariellaa ayde(s) [facility] [id number] Social History Type Description Quantity Date Captured Comments Sex Female Smoking Status No Information Chief Complaint And Reason For Visit No Information History Of Present Illness Encounter Date Complaint History Of Prese nt Illness No Information Instructions Date Instruction Additional Infor mation No Information Assessments Type Assessment Date No Information
--- OUTSIDE RECORDS SUMMARY | 2024-09-25 13:27 | XMS_ITS ---
Author Organization Unknown Address [address] [place] [phone] Phone Care Team Providers Care Take Out Waiter/Waitress Name Role Phone YUMIKO MCKEON Attending Unavailable NO PCP Primary Unavailable Results RESPIRATORY 4 PLEX COVID FLU RSV PCR - Collect Date/Time: 01/09/2024 19:40 [facility] ID: [id number] [place] [address], [id number] LOINC: 84568-9 Test Value Unit Reference Range Code Code System Flag SARS CoV2 PCR NEGATIVE FLU A PCR NEGATIVE FLU B PCR NEGATIVE RSV PCR NEGATIVE SEND TO [facility]? NO Social History Type Status Start Date End Date Code Code Syst em Smoking History Never smoker (Never Smoked) [id number] SNOMED CT Sex Female Hospital Discharge Instructions [...]
[2024-09-25 13:34] LABS: Basophils Absolute Auto 0.1 K/mm3 (0.0-0.1); Basophils Percent Auto 0.4 % (0.2-1.2); Eosinophils Absolute Auto 0.1 K/mm3 (0-0.3); Hematocrit 29.7 % (37.0-47.0); Hemoglobin 8.6 g/dL (12.0-15.0); Immature Granulocyte Absolute 0.09 K/mm3 (0.00-0.031); Immature Granulocyte Percent A 0.8 % (0-0.5); Lymphocytes Absolute Auto 1.93 K/mm3 (0.9-3.2); Lymphocytes Percent Auto 17.1 % (18.3-44.2); Mean Corpuscular Hemoglobin 20.3 pg (26-34); Mean Platelet Volume 10.4 fl (7.4-10.4); Neutrophils Absolute Auto 8.1 K/mm3 (1.3-6.7); Neutrophils Percent Auto 71.7 % (45.5-73.1); Platelet Count Result 387 k/mm3 (150-375); Red Blood Count 4.24 M/mm3 (4.2-5.4); Red Cell Distribution Width 18.6 % (11.5-14.5); White Blood Count 11.3 K/mm3 (4.5-10.0)
[2024-09-25] MEDS: ACETAMINOPHEN 500 MG TABLET 1000 MG PO (13:45)
[2024-09-25] MEDS: FAMOTIDINE 20 MG/2 ML VIAL IV PUSH (13:45)
[2024-09-25] MEDS: ONDANSETRON INJ 4 MG/2 ML VIAL IV PUSH (13:45)
[2024-09-25 13:58] LABS: Anisocytosis 1+; Hypochromasia 2+; Platelet Estimate Adequate (Adequate); Schistocytes None Seen
[2024-09-25 14:01] LABS: Microcytosis 1+ (NORMAL)
[2024-09-25 14:12] LABS: Syphilis IgG/IgM Antibody Negative (Negative)
[2024-09-25 14:26] LABS: HIV 1/2 Ab P24 Ag Result Negative (Negative)
--- NOTE | 2024-09-25 14:59 | W.PM.OBCSD ---
OB - Delivery Note Procedure Delivery date: 09/25/24 Pre-op diagnosis: Previous Delivery (1) IUP at 37 1/7 weeks; 2) Labor; 3) Prior ; 4) Desired sterility) Post-op Diagnosis: Same Delivery monitor: External FHT Procedure Performed: Repeat and Tubal Ligation Surgeon: Flash Santiago MD Anesthesia type: Spinal Description of Procedure/Findings: Findings: Right fallopian tube surgically absent. Uterus, left tube and bilateral ovaries unremarkable. Thin lower uterine segment. Techniques: The patient was taken to the operating room where she was prepared and draped in the usual sterile fashion in dorsal supine position with a leftward tilt. She received cefazolin preoperatively. Spinal anesthesia was found to be adequate. A Pfannenstiel skin incision was made along the previous scar line and was carried through to the underlying layer of the fascia. The fascia was incised in the midline and the incision was extended laterally. The fascia was dissected free of the underlying rectus muscles. The rectus muscles were in the midline. The peritoneum was identified, tented up and entered sharply. The peritoneal incision was extended superiorly and inferiorly with good visualization of the bladder. The bladder blade was placed. The vesicouterine peritoneum was identified, tented up and entered sharply. The incision was extended laterally and the bladder flap was developed. The bladder blade was replaced. The uterus was then incised sharply in a transverse fashion along the lower uterine segment. The incision was extended laterally. The infant's head was delivered atraumatically to the sterile field, followed by the body. The nose and mouth were bulb suctioned. After a delay, the cord was clamped and cut. The infant was handed off the field. Cord blood was collected. The placenta was removed manually and was passed off the field. The uterus was exteriorized and cleared of all clots and debris. The uterine incision was reapproximated using 0 Monocryl in a running, locked fashion. Excellent hemostasis resulted as did excellent reapproximation of the normal anatomy. The left Fallopian tube was elevated with a Supriya clamp. The Ligasure device was used to ligate and transect the mesentery to dissect the tube free, then amputating it at the level of the uterine serosa. The uterus was returned the abdomen. The pelvis was irrigated copiously with warmed normal saline. Rigorous hemostasis was assured. The fascial layer was reapproximated using 0 Vicryl in a running fashion. The skin was closed with a running, subcuticular stitch of 4 0 Vicryl. Dermaflex was applied externally. Sponge, lap, needle and instrument counts were correct. The patient was taken to the recovery room in stable condition. The infant went to the nursery in stable condition. I was present and scrubbed the entire procedure. Specimen: Yes (Left fallopian tube, cord blood) Estimated Blood Loss: 205 Drains: Yes (Ruelas) Packing: No Pathology: Yes (Left fallopian tube) Complications: None Condition: Stable Disposition: PACU Baby Date of : 09/25/24 Time of : 14:35 Gestational Age by Date: 37 gender: Female Weight (pounds): 7 Weight (ounces): 6 presentation: vertex Placenta delivery description: Manual Removal and Normal Configuration Cord Vessel Description: 3 Vessels and Delayed Cord Clamping score one minute: 8 score five minutes: 9
--- NOTE | 2024-09-25 15:02 | PM.OBDSVD ---
DS: Admitting Diagnosis Discharge Date <Ryan Stack MD - Last Filed: 09/28/24 06:22> Admitting Diagnosis IUP at 37 1/7 weeks Labor Prior Desired sterility <Flash Santiago MD - Last Filed: 09/25/24 15:05> DS: Discharge Diagnosis Discharge Diagnosis (1) delivery delivered: Code(s): O82 - Encounter for delivery without indication <Flash Santiago MD - Last Filed: 09/25/24 15:05> Status: Acute <Flash Santiago MD - Last Filed: 09/25/24 15:05> (2) History of delivery: Code(s): Z98.891 - History of uterine scar from previous surgery <Flash Santiago MD - Last Filed: 09/25/24 15:05> Status: Acute <Flash Santiago MD - Last Filed: 09/25/24 15:05> (3) Active labor at term: Status: Acute <Flash Santiago MD - Last Filed: 09/25/24 15:05> (4) Unwanted fertility: Code(s): Z30.09 - Encounter for other general counseling and advice on contraception <Flash Santiago MD - Last Filed: 09/25/24 15:05> Status: Acute <Flash Santiago MD - Last Filed: 09/25/24 15:05> (5) Anemia: Code(s): D64.9 - Anemia, unspecified <Flash Santiago MD - Last Filed: 09/25/24 15:05> Status: Acute <Flash Santiago MD - Last Filed: 09/25/24 15:05> OB - DS: Summary Hospital Course Hospital Course: Patient underwent low-transverse section bilateral tubal ligation. She did require 2units of blood and her hemoglobin was stable. <Flash Santiago MD - Last Filed: 09/25/24 15:05> OB Procedures : None <Flash Santiago MD - Last Filed: 09/25/24 15:05> OB Procedures Intrapartum: and Tubal ligation <Flash Santiago MD - Last Filed: 09/25/24 15:05> OB Procedures: : Transfusion and P.P. tubal ligation <Ryan Stack MD - Last Filed: 09/28/24 06:22> Time Spent with Patient Time attestation: Total time spent providing and/or coordinating discharge services: <Flash Santiago MD - Last Filed: 09/25/24 15:05> Exam Const: General: cooperative, healthy appearing and comfortable <Ryan Stack MD - Last Filed: 09/28/24 06:22> Nutritional Appearance: average body habitus <Ryan Stack MD - Last Filed: 09/28/24 06:22> Orientation/consciousness: oriented to person, oriented to place and oriented to time <Ryan Stack MD - Last Filed: 09/28/24 06:22> Resp: Effort & Inspection: normal respiratory effort <Ryan Stack MD - Last Filed: 09/28/24 06:22> GI: Inspection: normal to inspection and incision (cdi) <Ryan Stack MD - Last Filed: 09/28/24 06:22> DS: Data Data Completed and Pending Labs on day of discharge: Labs from last 24 hours 09/25/24 13:26 WBC 11.3 H RBC 4.24 Hgb 8.6 L Hct 29.7 L MCV 70.0 L MCH 20.3 L MCHC 29.0 L RDW 18.6 H Plt Count 387 H MPV 10.4 Immature Gran % (Auto) 0.8 H Neut % (Auto) 71.7 Lymph % (Auto) 17.1 L [place] % (Auto) 9.0 H Eos % (Auto) 1.0 Baso % (Auto) 0.4 Lymph # (Auto) 1.93 [place] # (Auto) 1.0 H Eos # (Auto) 0.1 Baso # (Auto) 0.1 Abs Immat Gran (auto) 0.09 H Absolute Neuts (auto) 8.1 H Absolute Nucleated RBC 0.000 Band Neutrophils % Not Reportable Nucleated RBC % 0.0 Platelet Estimate Adequate Hypochromasia 2+ Anisocytosis 1+ Microcytosis 1+ Schistocytes None seen Syphilis IgG/IgM Ab Negative HIV 1&2 Ab/P24 Ag 4thGn Negative Blood Type O Positive Antibody Screen Negative <Flash Santiago MD - Last Filed: 09/25/24 15:05> Discharge Plan Discharge Attending physician on discharge: Flash Santiago <Flash Santiago MD - Last Filed: 09/25/24 15:05> Flash Santiago <Ryan Stack MD - Last Filed: 09/28/24 06:22> Discharging Clinician: Flash Santiago <Flash Santiago MD - Last Filed: 09/25/24 15:05> Flash Santiago <Ryan Stack MD - Last Filed: 09/28/24 06:22> Patient Disposition: Home <Flash Santiago MD - Last Filed: 09/25/24 15:05> Activity: may shower, may drive after 2 weeks and pelvic rest <Flash Sanitago MD - Last Filed: 09/25/24 15:05> may shower, may drive after 2 weeks and pelvic rest <Ryan Stack MD - Last Filed: 09/28/24 06:22> Diet: regular <Flash Santiago MD - Last Filed: 09/25/24 15:05> regular <Ryan Stack MD - Last Filed: 09/28/24 06:22> Wound Care Instructions: incision open to air <Flash Santiago MD - Last Filed: 09/25/24 15:05> incision open to air <Ryan Stack MD - Last Filed: 09/28/24 06:22> Discharge Instructions: Call or return if temperature above 100.4? F, increased abdominal pain, increased vaginal bleeding or any new problems. <Flash Santiago MD - Last Filed: 09/25/24 15:05> Patient Language: Hungarian <Flash Santiago MD - Last Filed: 09/25/24 15:05> Stand Alone Forms: General Discharge Information <Flash Santiago MD - Last Filed: 09/25/24 15:05> Follow-up/Referrals: Flash Santiago MD [Physician] - Call for Appointment <Flash Santiago MD - Last Filed: 09/25/24 15:05> Discharge Medications: New ibuprofen 600 mg tablet 600 mg PO Q6H PRN (Reason: cramps) Qty: 30 0RF hydrocodone-acetaminophen 5-325 mg tablet 1 - 2 tablet PO Q6H PRN (Reason: pain) Qty: 30 0RF No Action No Home Medications <Flash Santiago MD - Last Filed: 09/25/24 15:05> Date of admission: 09/25/24 11:52 <Flash Santiago MD - Last Filed: 09/25/24 15:05> Primary Care Provider: UNKNOWN,DOCTOR <Flash Santiago MD - Last Filed: 09/25/24 15:05> Admitting Provider: Flash Santiago <Flash Santiago MD - Last Filed: 09/25/24 15:05> Attending physician on admission: Flash Santiago <Flash Santiago MD - Last Filed: 09/25/24 15:05> Condition: Stable <Flash Santiago MD - Last Filed: 09/25/24 15:05>
[2024-09-25] MEDS: LIDOCAINE 5% PATCH 1 PATCH TRANSDERM (16:06)
[2024-09-25] MEDS: OXYTOCIN 30 UNITS/NS 500 ML 30 UNITS/500 ML BAG 125 UNITS IV CONT (17:06)
--- NOTE | 2024-09-25 17:55 | OBPPTRN ---
Patient transferred to post room #284 via stretcher. Oriented to unit, room, information board, rooming in, admission packet and security measures. Patient verbalizes understanding.
[2024-09-25] MEDS: MORPHINE SULFATE (*CRX) 2 MG/ML INJ IV PUSH (18:07)
[2024-09-25] MEDS: ACETAMINOPHEN 325 MG TABLET 650 MG PO (20:02)
[2024-09-25] MEDS: POLYSACCHARIDE IRON COMPLEX 150 MG CAPSULE PO (20:03)
[2024-09-25] MEDS: DOCUSATE SODIUM 100 MG CAPSULE PO (20:03)
[2024-09-25] MEDS: SIMETHICONE 80 MG TAB.CHEW PO (20:04)
[2024-09-25] MEDS: KETOROLAC 15 MG/ML VIAL (*BKC) IV PUSH (20:04)
[2024-09-25] MEDS: DEXTROSE 5%/0.45% SOD CHL 1,000 ML 125 ML IV CONT (21:31)
[2024-09-25] MEDS: diphenhydrAMINE HCl INJ 50 MG/ML VIAL 25 MG IV PUSH (21:40)
[2024-09-26] VITALS (11 sets, daily range): BP systolic 104–125; BP diastolic 60–87; PULSE 73–93; RESP 16–18; TEMP 36.3–37; O2SAT 96–100
[2024-09-26] MEDS: KETOROLAC 15 MG/ML VIAL (*BKC) IV PUSH ×3 (02:20→14:37)
[2024-09-26] MEDS: diphenhydrAMINE HCl INJ 50 MG/ML VIAL 25 MG IV PUSH (02:20)
[2024-09-26] MEDS: ACETAMINOPHEN 325 MG TABLET 650 MG PO ×4 (02:21→20:27)
[2024-09-26 05:41] LABS: Basophils Absolute Auto 0.1 K/mm3 (0.0-0.1); Basophils Percent Auto 0.4 % (0.2-1.2); Eosinophils Absolute Auto 0.2 K/mm3 (0-0.3); Eosinophils Percent Auto 1.4 % (0-4.4); Hematocrit 25.2 % (37.0-47.0); Hemoglobin 7.2 g/dL (12.0-15.0); Immature Granulocyte Absolute 0.09 K/mm3 (0.00-0.031); Immature Granulocyte Percent A 0.7 % (0-0.5); Lymphocytes Absolute Auto 1.62 K/mm3 (0.9-3.2); Lymphocytes Percent Auto 11.8 % (18.3-44.2); Mean Corpuscular HGB Conc 28.6 g/dl (32-36); Mean Corpuscular Hemoglobin 20.1 pg (26-34); Mean Corpuscular Volume 70.4 fl (80-100); Mean Platelet Volume 10.3 fl (7.4-10.4); Monocytes Absolute Auto 1.4 K/mm3 (0.1-0.6); Monocytes Percent Auto 10.1 % (2.6-8.5); Neutrophils Absolute Auto 10.4 K/mm3 (1.3-6.7); Neutrophils Percent Auto 75.6 % (45.5-73.1); Platelet Count Result 311 k/mm3 (150-375); Red Blood Count 3.58 M/mm3 (4.2-5.4); Red Cell Distribution Width 18.2 % (11.5-14.5); White Blood Count 13.7 K/mm3 (4.5-10.0)
[2024-09-26 06:13] LABS: Anisocytosis 1+; Hypochromasia 1+; Microcytosis 1+ (NORMAL); Ovalocytes 1+; Platelet Estimate Adequate (Adequate); Schistocytes None Seen; Target Cells 1+
--- NOTE | 2024-09-26 06:35 | P.PNOB_ITS ---
OB - PN: Subj Subjective Date/time seen: 09/26/24 06:35 Patient comments: no complaints, pain well controlled, tolerating diet and flatus present [place] baby status: doing well OB - PN: Obj Data Labs 09/26/24 04:17 Labs: Laboratory Results - last 24 hr 09/25/24 09/26/24 13:26 04:17 WBC 11.3 H 13.7 H RBC 4.24 3.58 L Hgb 8.6 L 7.2 L Hct 29.7 L 25.2 L MCV 70.0 L 70.4 L MCH 20.3 L 20.1 L MCHC 29.0 L 28.6 L RDW 18.6 H 18.2 H Plt Count 387 H 311 MPV 10.4 10.3 Immature Gran % (Auto) 0.8 H 0.7 H Neut % (Auto) 71.7 75.6 H Lymph % (Auto) 17.1 L 11.8 L [place] % (Auto) 9.0 H 10.1 H Eos % (Auto) 1.0 1.4 Baso % (Auto) 0.4 0.4 Lymph # (Auto) 1.93 1.62 [place] # (Auto) 1.0 H 1.4 H Eos # (Auto) 0.1 0.2 Baso # (Auto) 0.1 0.1 Abs Immat Gran (auto) 0.09 H 0.09 H Absolute Neuts (auto) 8.1 H 10.4 H Absolute Nucleated RBC 0.000 0.000 Band Neutrophils % Not Reportable Not Reportable Nucleated RBC % 0.0 0.0 Platelet Estimate Adequate Adequate Hypochromasia 2+ 1+ Anisocytosis 1+ 1+ Microcytosis 1+ 1+ Target Cells 1+ Ovalocytes 1+ Schistocytes None seen None seen Syphilis IgG/IgM Ab Negative HIV 1&2 Ab/P24 Ag 4thGn Negative Blood Type O Positive Antibody Screen Negative OB - PN A/P Assessment and Plan (1) delivery delivered: Code(s): O82 - Encounter for delivery without indication Status: Acute (2) Unwanted fertility: Code(s): Z30.09 - Encounter for other general counseling and advice on contraception Status: Acute (3) Anemia: Code(s): D64.9 - Anemia, unspecified Status: Acute Plan begin iron Time Spent With Patient Time: Total time spent is greater than 50% in coordination of care (as documented) at patient's floor/unit and/or counseling patient: Review of Systems 2 Review of Systems: All systems reviewed & are unremarkable except as noted in HPI and below Exam 2 Const: General: cooperative, healthy appearing and comfortable Nutritional Appearance: average body habitus Orientation/consciousness: oriented to person, oriented to place and oriented to time Resp: Effort & Inspection: normal respiratory effort GI: Inspection: normal to inspection and incision (cdi)
--- NOTE | 2024-09-26 08:12 | WPDANLDNPN2 ---
Anes-Prog Note L&D-Neuraxial Date/Time: 09/26/24 08:12 Patient feedback: Patient satisfied with post-operative pain management.
--- NOTE | 2024-09-26 08:12 | WPDANLDPN2 ---
Anes-Prog Note L&D Date/Time: 09/26/24 08:12 Neuro status: Neuro function grossly intact. Cardiovascular status: normal Respiratory status: normal Airway patency: baseline Mental status: baseline Vital Signs: Last Vital Signs Temp 36.6 C 09/25/24 22:40 Pulse 100 09/25/24 22:40 Resp 18 09/25/24 22:40 BP 129/85 09/25/24 22:40 Pulse Ox 98 09/25/24 22:40 O2 Del Method Room Air 09/25/24 20:00 Pain score (VAS): 0 I/O: Intake & Output 09/25/24 09/26/24 09/26/24 23:59 07:59 15:59 Intake Total 250 1520 Output Total 800 700 Balance -550 820 Patient feedback: Patient satisfied with anesthetic care.
[2024-09-26] MEDS: DOCUSATE SODIUM 100 MG CAPSULE PO ×2 (08:22→16:24)
[2024-09-26] MEDS: SIMETHICONE 80 MG TAB.CHEW PO ×3 (08:22→16:24)
[2024-09-26] MEDS: POLYSACCHARIDE IRON COMPLEX 150 MG CAPSULE PO ×2 (08:22→16:24)
[2024-09-26] MEDS: MULTIVIT/MIN/PREN/FOL AC/IRON TABLET 1 TAB PO (08:22)
[2024-09-26] MEDS: HYDROcodone/acetaminophen (*CRX) 5-325 MG TABLET 1 TAB PO ×2 (12:36→19:43)
[2024-09-26] MEDS: TUBING, BLOOD PLUM PUMP TUBING 1 EACH XX (18:14)
[2024-09-26] MEDS: SODIUM CHLORIDE 0.9% IV 250 ML 30 ML IV CONT (18:14)
[2024-09-26] MEDS: IBUPROFEN 600 MG TABLET PO (20:27)
[2024-09-26] MEDS: LIDOCAINE 5% PATCH 1 PATCH TRANSDERM (21:29)
[2024-09-26] MEDS: SODIUM CHLORIDE 0.9% IV 250 ML 30 ML (22:29)
[2024-09-26] MEDS: HYDROcodone/acetaminophen (*CRX) 10-325 MG TABLET 1 TAB PO (23:47)
[2024-09-27 00:44] VITALS: BP 118/78; PULSE 72; RESP 15; TEMP 36.6; O2SAT 97
[2024-09-27 01:44] VITALS: BP 120/80; PULSE 68; RESP 16; TEMP 36.3; O2SAT 98
[2024-09-27] MEDS: ACETAMINOPHEN 325 MG TABLET 650 MG PO ×4 (02:40→21:58)
[2024-09-27] MEDS: IBUPROFEN 600 MG TABLET PO ×4 (02:40→21:57)
[2024-09-27 03:00] VITALS: BP 124/82; PULSE 76; RESP 16; TEMP 36.4; O2SAT 99
[2024-09-27 03:16] LABS: Hematocrit 31.3 % (37.0-47.0); Hemoglobin 9.4 g/dL (12.0-15.0)
[2024-09-27] MEDS: MORPHINE SULFATE (*CRX) 2 MG/ML INJ IV PUSH (03:21)
--- NOTE | 2024-09-27 07:15 | P.PNOB_ITS ---
OB - PN: Subj Subjective Date/time seen: 09/27/24 07:15 Patient comments: no complaints, pain well controlled and tolerating diet [place] feeding status: other (Baby now up from level 2 to regular nursery) OB - PN: Obj Data Labs 09/27/24 03:10 Labs: Laboratory Results - last 24 hr 09/25/24 09/27/24 13:26 03:10 Hgb 9.4 L Hct 31.3 L Blood Type O Positive Antibody Screen Negative Crossmatch See Detail OB - PN A/P Assessment and Plan (1) History of delivery: Code(s): Z98.891 - History of uterine scar from previous surgery Status: Acute (2) Unwanted fertility: Code(s): Z30.09 - Encounter for other general counseling and advice on contraception Status: Acute (3) delivery delivered: Code(s): O82 - Encounter for delivery without indication Status: Acute (4) Anemia: Code(s): D64.9 - Anemia, unspecified Status: Acute Plan Hemoglobin back up to 9.4 after 2units of blood. Baby now back up from the level 2. Continue observation as patient is improving and is baby Time Spent With Patient Time: Total time spent is greater than 50% in coordination of care (as documented) at patient's floor/unit and/or counseling patient: Review of Systems 2 Review of Systems: All systems reviewed & are unremarkable except as noted in HPI and below Exam 2 Const: General: cooperative, healthy appearing and comfortable Nutritional Appearance: average body habitus Orientation/consciousness: oriented to person, oriented to place and oriented to time Resp: Effort & Inspection: normal respiratory effort GI: Inspection: normal to inspection and incision (cdi)
[2024-09-27] MEDS: HYDROcodone/acetaminophen (*CRX) 10-325 MG TABLET 1 TAB PO ×4 (07:39→22:58)
[2024-09-27] MEDS: SIMETHICONE 80 MG TAB.CHEW PO ×3 (07:39→16:22)
[2024-09-27] MEDS: POLYSACCHARIDE IRON COMPLEX 150 MG CAPSULE PO ×2 (07:39→16:23)
[2024-09-27] MEDS: MULTIVIT/MIN/PREN/FOL AC/IRON TABLET 1 TAB PO (07:39)
[2024-09-27 07:46] VITALS: BP 127/90; PULSE 99; RESP 19; TEMP 36.6; O2SAT 98
[2024-09-27] MEDS: DOCUSATE SODIUM 100 MG CAPSULE PO ×2 (07:48→16:22)
[2024-09-27 19:35] VITALS: BP 128/88; PULSE 61; RESP 16; TEMP 36.9; O2SAT 98
[2024-09-27] MEDS: HYDROcodone/acetaminophen (*CRX) 5-325 MG TABLET 1 TAB PO (19:58)
[2024-09-27] MEDS: LIDOCAINE 5% PATCH 1 PATCH TRANSDERM (19:59)
[2024-09-28 00:05] VITALS: BP 124/81; PULSE 77; RESP 16; TEMP 37; O2SAT 95
[2024-09-28] MEDS: IBUPROFEN 600 MG TABLET PO ×2 (03:57→10:26)
--- NOTE | 2024-09-28 06:19 | PM.OBPNVD ---
OB - PN: Subj Subjective Date/time seen: 09/28/24 06:19 Patient comments: no complaints, pain well controlled and tolerating diet [place] baby status: doing well OB - PN: Obj Data Labs 09/27/24 03:10 OB - PN A/P Assessment and Plan (1) History of delivery: Code(s): Z98.891 - History of uterine scar from previous surgery Status: Acute (2) Active labor at term: Status: Acute (3) Unwanted fertility: Code(s): Z30.09 - Encounter for other general counseling and advice on contraception Status: Acute (4) delivery delivered: Code(s): O82 - Encounter for delivery without indication Status: Acute Plan home Time Spent With Patient Time: Total time spent is greater than 50% in coordination of care (as documented) at patient's floor/unit and/or counseling patient: Review of Systems Review of Systems: All systems reviewed & are unremarkable except as noted in HPI and below Exam Const: General: cooperative, healthy appearing and comfortable Nutritional Appearance: average body habitus Orientation/consciousness: oriented to person, oriented to place and oriented to time Resp: Effort & Inspection: normal respiratory effort GI: Inspection: normal to inspection and incision (cdi)
[2024-09-28] MEDS: DOCUSATE SODIUM 100 MG CAPSULE PO (07:39)
[2024-09-28] MEDS: MULTIVIT/MIN/PREN/FOL AC/IRON TABLET 1 TAB PO (07:39)
[2024-09-28] MEDS: POLYSACCHARIDE IRON COMPLEX 150 MG CAPSULE PO (07:39)
[2024-09-28] MEDS: SIMETHICONE 80 MG TAB.CHEW PO ×2 (07:39→12:01)
[2024-09-28] MEDS: HYDROcodone/acetaminophen (*CRX) 10-325 MG TABLET 1 TAB PO ×2 (07:40→12:01)
[2024-09-28 08:30] VITALS: BP 132/83; PULSE 65; RESP 16; TEMP 36.4; O2SAT 96
[2024-09-28] MEDS: ACETAMINOPHEN 325 MG TABLET 650 MG PO (10:26)
[2024-09-30 11:24] VITALS: BP 121/89; PULSE 81; RESP 18; TEMP 36.9; O2SAT 100
== END 2024-09-28 12:33 | disposition home or self-care (01) | DRG 785 ==
LOC: ANHLDR 09-30 12:10 → ANHOB2 09-30 12:10
PROVIDERS: Admitting Provider Obstetrics & Gynecology; Visit Provider Obstetrics & Gynecology
PROC: 10D00Z1 Extraction of Products of Conception, Low, Open Approach (ICD-10-PCS; CPT 59514; principal; 2024-09-25 14:00)
DX: O34.211 Maternal care for low transverse scar from previous cesarean delivery (principal); Z37.0 Single live birth; Z3A.37 37 weeks gestation of pregnancy; Z30.2 Encounter for sterilization; O99.02 Anemia complicating childbirth; D50.9 Iron deficiency anemia, unspecified
CPT/HCPCS: 36415; 36430; 85014; 85018; 85025; 86593; 86703; 86850; 86900; 86901; 86923; 88302; A9270; G0432; J1200; J1885; J2270; J2274; J2371; J2405; J2590; J7050; J7120; P9016

== ENCOUNTER 2024-10-02 14:47 | Outpatient (CLI) | payer BC, SELFPAY ==
[2024-10-02] VITALS (22 sets, daily range): BP systolic 97–158; BP diastolic 50–102; PULSE 53–139; RESP 18; TEMP 36.2; O2SAT 98
--- OUTSIDE RECORDS SUMMARY | 2024-10-02 12:41 | XMS_ITS | Continuity of Care Document ---
Author Organization [facility] Address [address] [place] [address] Phone Care Team Providers Care Head Batcher Name Role Phone Unavailable Unavailable Unavailable Advance Directives Directive Yes / No Effective Date File Name No Information Encounters Encounter Description Practice Location Reason(s) For Visit Diagnoses Date Provider Providers Copied on Encounter [facility], [address], [place], [place], [id number], [place] tel:[phone] DSAM No Information 3 No Information Referring Provider: Kannan [address], [place], [address]. tel:[phone] Family History Family Member Type Diagnosis Age At Onset No Information Payers Payer name Insurance type Covered green party ID Authorariellaa ayde(s) [facility] [id number] Social History Type Description Quantity Date Captured Comments Sex Female Smoking Status No Information Chief Complaint And Reason For Visit No Information History Of Present Illness Encounter Date Complaint History Of Prese nt Illness No Information Instructions Date Instruction Additional Infor mation No Information Assessments Type Assessment Date No Information
--- OUTSIDE RECORDS SUMMARY | 2024-10-02 12:42 | XMS_ITS | Clinical Summary ---
Author Organization [facility] Address [address] [place] [phone] Phone Care Team Providers Care Rn Transfer Name Role Phone Unavailable Primary Care Provider Unavailabl e Allergies No known active allergies Medications oxyCODONE (ROXICODONE) 5 mg tabletIndications :Left tubal without intrauterine Take 1 Tablet (5 mg) by mouth every 4 hours as needed for Pain, Break-Throu gh. 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 Respiratory Rate 18 04/18/2023 12:39 PM 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 Oxygen Saturation 100% 04/18/2023 12:39 PM 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 Inhaled Oxygen Concentration - - Weight 63.5 kg (140 lb) 04/17/2023 10:28 PM 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
--- OUTSIDE RECORDS SUMMARY | 2024-10-02 12:42 | XMS_ITS ---
Author Organization Unknown Address [address] [place] [phone] Phone Care Team Providers Care Pump Technician Name Role Phone YUMIKO MCKEON Attending Unavailable NO PCP Primary Unavailable Results RESPIRATORY 4 PLEX COVID FLU RSV PCR - Collect Date/Time: 01/09/2024 19:40 [facility] ID: [id number] [address] [place] [address], [phone] LOINC: [id number] Test Value Unit Reference Range Code Code System Flag SARS CoV2 PCR NEGATIVE FLU A PCR NEGATIVE FLU B PCR NEGATIVE RSV PCR NEGATIVE SEND TO [facility]? NO Social History Type Status Start Date End Date Code Code Syst em Smoking History Never smoker (Never Smoked) [id number] SNOMED CT Sex Female Hospital Discharge Instructions [...]
--- NOTE | 2024-10-02 14:17 | ED_ITS ---
HPI - Headache General Chief Complaint: Headache Stated Complaint: migraine x 2 days after csection Time Seen by Provider: 10/02/24 14:17 Focused HPI: This is a 29 year old female that presents to the ER for migraine headache. Ongoing over the last 2 days. Reports she has been taking Tylenol and Ibuprofen with little relief. Reports she was seen at [place] last night and had a CT scan of her brain and a migraine cocktail. She had a c section here one week ago. The other hospital recommended a blood patch, but they are not able to do one there. Reports a diffuse headache. Reports laying down makes her headache worse. GENERAL: Uncomfortable, well-nourished, and in no acute distress. HEAD: Normocephalic, atraumatic. CHEST: Clear to auscultation. ?No respiratory distress. HEART: Regular rate and rhythm.? NEURO: ?Alert and oriented x3. Patient screened in triage and initial orders placed.? ?Additional care and disposition to be based upon?diagnostic testing and treatment. Related Data Allergies Allergy/AdvReac Type Severity Reaction Status Date / Time No Known Allergies Allergy Verified 09/20/24 14:41 Review of Systems Review of Systems: All systems reviewed & are unremarkable except as noted in HPI and below PMFSH Past Medical History Medical History (Updated 10/02/24 @ 14:46 by Marta Morrissey PA-C) NATALIE (iron deficiency anemia) Surgical History Surgical History (Updated 09/25/24 @ 13:18 by Flash Santiago MD) History of salpingectomy History of delivery Family History Family History Other Unknown family medical history Social History Social History (Updated 06/08/24 @ 20:31 by Miki Doyle RN) Smoking status: Never smoker Second hand tobacco smoke exposure: No Alcohol intake: never Substance use: never Substance use type: does not use Do You Feel Safe in your Home?: Yes Lack of Transportation: No Lack of Food: Never True Current Housing: I Have Housing Concerned About Future Housing: No Difficulty Paying Gas/Electric Bills: No Difficulty Paying for Meds: No Currently Unemployed: No Education: Bachelor's Degree Difficulty w/ Childcare or Family Care: No Living arrangements: with family Occupation/Education: occupation Gender identity (if verbalized by the patient): Female Sexual Orientation (if Verbalized by the Patient): Straight or Heterosexual Spiritual care concerns: No Agree to blood products: Yes Exam Narrative: GENERAL: Well-appearing, well-nourished, and in no acute distress. HEAD: Normocephalic, atraumatic. EYES: EOMI. ENT: Nares clear, no rhinorrhea or epistaxis. Mucous membranes moist. Oropharynx without tonsillar hypertrophy exudate or other lesions. NECK: Supple. No adenopathy or masses. CHEST: Clear to auscultation. No respiratory distress. No wheezes rales or rhonchi HEART: Regular rate and rhythm. No murmur heard. Normal peripheral pulses. EXTREMITIES: Normal range of motion. No edema. SKIN: Warm, dry, no rash. NEURO: No focal deficits. Alert and oriented x3. Normal gait PSYCH: Normal mood and affect Course Course Emergency Course: Patient will be wheeled over to OB for further evaluation and possible blood patch Consultations Consultation #1: Spoke with Dr. Santiago, patient can be taken over to OB for further evaluation f or possible blood patch Date: 10/02/24 Vital Signs Vital signs: Vital Signs Temperature 97.2 F L 10/02/24 12:53 Pulse Rate 106 H 10/02/24 12:53 Respiratory Rate 18 10/02/24 12:53 Blood Pressure 125/100 H 10/02/24 12:53 Pulse Oximetry 98 10/02/24 12:53 Temperature 97.2 F L 10/02/24 12:53 Pulse Rate 106 H 10/02/24 12:53 Respiratory Rate 18 10/02/24 12:53 Blood Pressure 125/100 H 10/02/24 12:53 Pulse Oximetry 98 10/02/24 12:53 MDM - Headache MDM Narrative Medical decision making narrative: Patient presents to the emergency department for a headache. Reports this has been ongoing over the last 2 days. She had a 1 week ago. No previous history of migraines. She is afebrile and nontoxic appearing. Was evaluated at [facility] last night and had a CT scan of her brain. She had a migraine cocktail at that time with some relief. Reports return of headache shortly after. Spoke with Dr. Santiago, patient can be taken over to OB for further evaluation for possible blood patch Differential Diagnosis Differential diagnosis: Likely migraine, tension headache and other (post spinal headache) Critical Care Time Critical Care Time Critical Care Time: No Discharge Plan Discharge Clinical Impression: Headache Qualifiers: Headache type: unspecified Headache chronicity pattern: acute headache Intractability: not intractable Qualified Code(s): R51.9 - Headache, unspecified Patient Disposition: Other Condition: Stable Instructions: Acute Headache (ED) Patient Language: Macanese Prescriptions: No Action ibuprofen 600 mg tablet 600 mg PO Q6H PRN (Reason: cramps) Qty: 30 0RF hydrocodone-acetaminophen 5-325 mg tablet 1 - 2 tablet PO Q6H PRN (Reason: pain) Qty: 30 0RF hydrocodone-acetaminophen 5-325 mg tablet 1 tablet PO Q4H PRN (Reason: pain) Qty: 20 0RF Follow-up/Referrals: UNKNOWN,DOCTOR [Primary Care Provider] -
--- OUTSIDE RECORDS SUMMARY | 2024-10-02 14:55 | XMS_ITS | Continuity of Care Document ---
Author Organization [facility] Address [address] [place] [address] Phone Care Team Providers Care Fish Farm Laborer Name Role Phone Unavailable Unavailable Unavailable Advance Directives Directive Yes / No Effective Date File Name No Information Encounters Encounter Description Practice Location Reason(s) For Visit Diagnoses Date Provider Providers Copied on Encounter [facility], [address], [place], [place], [id number], [place] tel:[phone] DSAM No Information 3 No Information Referring Provider: Kannan [address], [place], [address]. tel:[phone] Family History Family Member Type Diagnosis Age At Onset No Information Payers Payer name Insurance type Covered libertarian ID Authorariellaa ayde(s) [facility] [id number] Social History Type Description Quantity Date Captured Comments Sex Female Smoking Status No Information Chief Complaint And Reason For Visit No Information History Of Present Illness Encounter Date Complaint History Of Prese nt Illness No Information Instructions Date Instruction Additional Infor mation No Information Assessments Type Assessment Date No Information
--- OUTSIDE RECORDS SUMMARY | 2024-10-02 14:55 | XMS_ITS ---
Author Organization Unknown Address [address] [place] [phone] Phone Care Team Providers Care Flat Ironer Name Role Phone JUDMONIQUE TIERNEY Attending Unavailable NATHAN Peralta Primary Unavailable Results URINALYSIS w/Microscopy/C&S if indicated - Collect Date/Time: 06/08/2024 12:35 [facility] ID: [id number] [address] [place], [place], [id number] LOINC: 78256-2 Test Value Unit Reference Range Code Code System Flag UR SOURCE VOIDED 92227-2 LOINC COLOR STRAW YELLOW 5778-6 LOINC CLARITY SL CLOUDY CLEAR 46973-3 LOINC SPEC GRAVITY 1.010 1.000-1.030 5811-5 LOINC PH 6.0 5.0 - 6.5 5803-2 LOINC LEUK EST NEGATIVE NEGATIVE 5799-2 LOINC NITRATE NEGATIVE NEGATIVE PROTEIN NEGATIVE NEGATIVE 5804-0 LOINC GLUCOSE NEGATIVE NEGATIVE 64506-6 LOINC KETONES NEGATIVE NEGATIVE 21047-0 LOINC UROBILINOGEN 0.2 0.2 - 1.0 5818-0 LOINC BILIRUBIN NEGATIVE NEGATIVE 00724-9 LOINC BLOOD NEGATIVE NEGATIVE 67118-0 LOINC WBC 0-2 0 - 2 30070-8 LOINC RBC 0-2 0 - 2 49289-5 LOINC SQ EPITHELIAL MODERATE RARE-FEW BACTERIA FEW NONE SEEN 78445-4 LOINC MUCUS NONE SEEN NONE SEEN 8247-9 LOINC YEAST NOT PRESENT NOT PRESENT 98144-8 LOINC TRICHOMONAS NOT PRESENT NOT PRESENT 77687-8 LOINC SPERMATOZOA NOT PRESENT NOT PRESENT 97651-8 LOINC CASTS NOT PRESENT 79211-6 LOINC CRYSTALS NOT PRESENT 71805-0 LOINC CULTURE? NO 8251-1 LOINC DIAGNOSIS N/A CBC W/ DIFF - Collect Date/T jenni: 06/08/2024 09:43 [facility] ID: [id number] [address] [place], [place], [id number] LOINC: 74465-5 Test Value Unit Reference Range Code Code System Flag WBC 10.4 10^3uL L=4.8 H=10.8 RBC 3.86 10^6uL L=4.20 H=5.40 L HEMOGLOBIN 10.2 g/dL L=12.0 H=16.0 718-7 LOINC L HEMATOCRIT 31.8 VOL% L=37.0 H=47.0 4544-3 LOINC L MCV 82.4 fL L=81.0 H=99.0 MCH 26.4 pg L=27.0 H=32.0 L MCHC 32.1 g/dL L=32.0 H=36.0 PLATELETS 325 10^3uL L=100 H=400 17175-3 LOINC RDW 15.0 % L=11.7 H=15.5 %GRAN 75.9 % L=40.0 H=70.0 53597-2 LOINC H %LYMPH 9.5 % L=20.0 H=45.0 736-9 LOINC L %MONO 12.6 % L=2.0 H=10.0 03055-9 LOINC H %EOS 0.9 % L=0.0 H=6.0 713-8 LOINC %BASO 0.4 % L=0.0 H=3.0 706-2 LOINC #NEUT 7.9 10^3uL L=1.9 H=7.6 81833-5 LOINC H #LYMPH 1.0 10^3uL L=0.9 H=4.9 81945-8 LOINC #MONO 1.3 10^3uL L=0.1 H=0.9 07857-1 LOINC H #EOS 0.1 10^3uL L=0.0 H=0.6 712-0 LOINC #BASO 0.04 10^3uL L=0.00 H=0.10 34061-5 LOINC #IM GRANS 0.1 10^3uL L=0.0 H=7.0 99466-3 LOINC %IM GRANS 0.7 % L=0.0 H=5.0 80488-9 LOINC %NRB 0.0 L=0.0 H=0.2 22814-8 LOINC #NRB 0.000 L=0.000 H=0.012 48556-6 LOINC MANUAL DIFF NOT INDICATED RBC MORPH NOT INDICATED COMPREHENSIVE METABOLIC PANE L - Collect Date/Time: 06/08/2024 09:43 [facility] ID: [id number] [address] [place], [place], [id number] LOINC: 89172-3 Test Value Unit Reference Range Code Code [...] 2028-9 LOINC ANION GAP 11 L=10 H=20 49944-0 LOINC OSMOLALITY 278 mOs/kG L=280 H=296 78125-7 LOINC L BUN/CREAT 10.0 3097-3 LOINC CALCIUM 8.5 mg/dL L=8.3 H=10.5 52573-1 LOINC AST 25 U/L L=15 H=46 1920-8 LOINC ALT 13 U/L L=9 H=72 1742-6 LOINC ALKALINE PHOS 64 U/L L=38 H=126 6768-6 LOINC TOTAL BILI 0.2 mg/dL L=0.2 H=1.3 1975-2 LOINC ALBUMIN 3.1 G/dL L=3.5 H=5.0 1751-7 LOINC L TOTAL PROTEIN 6.8 g/L L=6.3 H=8.2 2885-2 LOINC A/G RATIO 0.8 22406-4 LOINC AGE 28 40604-0 LOINC eGFR NON-AFR 155 ml/min eGFR AFR AMER 188 ml/min PROTIME - Collect Date/Time: 06/08/2024 09:43 [facility] ID: [id number] [address] [place] [address], [phone] LOINC: 54246-3 Test Value Unit Reference Range Code Code System Flag PT 9.9 Sec L=9.7 H=11.7 35415-5 LOINC INR 0.9 Sec L=0.9 H=1.1 36217-9 LOINC PTT - Collect Date/Time: 06/2024 09:43 [facility] ID: [id number] [address] [place] [address], [phone] LOINC: 25650-2 Test Value Unit Reference Range Code Code System Flag PTT 25.0 Sec L=23.0 H=31.2 4 PLEX RESPIRATORY COVID FLU RSV PCR - Collect Date/Time: 06/08/2024 09:40 [facility] ID: [id number] [address] [place] [address], [id number] LOINC: 17440-1 Test Value Unit Reference Range Code Code System Flag SARS CoV2 PCR NEGATIVE FLU A PCR POSITIVE A FLU B PCR NEGATIVE RSV PCR NEGATIVE SEND TO [facility]? YES Social History Type Status Start Date End Date Code Code Syst em Smoking History Never smoker (Never Smoked) [id number] SNOMED CT Sex Female Hospital Discharge Instructions [...]
--- OUTSIDE RECORDS SUMMARY | 2024-10-02 14:55 | XMS_ITS ---
Author Organization Unknown Address [address] [place] [phone] Phone Care Team Providers Care Cremator Name Role Phone YUMIKO MCKEON Attending Unavailable NO PCP Primary Unavailable Results RESPIRATORY 4 PLEX COVID FLU RSV PCR - Collect Date/Time: 01/09/2024 19:40 [facility] ID: [id number] [address] [place] [address], [phone] LOINC: 98970-6 Test Value Unit Reference Range Code Code System Flag SARS CoV2 PCR NEGATIVE FLU A PCR NEGATIVE FLU B PCR NEGATIVE RSV PCR NEGATIVE SEND TO [facility]? NO Social History Type Status Start Date End Date Code Code Syst em Smoking History Never smoker (Never Smoked) [id number] SNOMED CT Sex Female Hospital Discharge Instructions [...]
--- OUTSIDE RECORDS SUMMARY | 2024-10-02 14:55 | XMS_ITS | Clinical Summary ---
Author Organization [facility] Address [address] [place] [phone] Phone Care Team Providers Care Heating Equipment Installer Name Role Phone Unavailable Primary Care Provider Unavailabl e Allergies No known active allergies Medications oxyCODONE (ROXICODONE) 5 mg tabletIndications :Left tubal without intrauterine Take 1 Tablet (5 mg) by mouth every 4 hours as needed for Pain, Break-Throu gh. Max Daily Amount: 30 mg 20 Tablet 04/18/2023 11:13 AM NEON ELECTRICIAN 04/18/2023 Active Active Problems Problem Noted Date [...] on file Legal Sex Female 1:57 PM NEON ELECTRICIAN Gender Identity Not on file Sexual Orientation Not on file Last Filed Vital Signs Vital Sign Reading Time Taken Comments Blood Pressure 115/64 04/18/2023 12:39 PM NEON ELECTRICIAN Pulse 111 04/18/2023 12:39 PM NEON ELECTRICIAN Temperature 36.8 C (98.3 F) 04/18/2023 12:39 PM NEON ELECTRICIAN Respiratory Rate 18 04/18/2023 12:39 PM NEON ELECTRICIAN Oxygen Saturation 100% 04/18/2023 12:39 PM NEON ELECTRICIAN Inhaled Oxygen Concentration - - Weight 63.5 kg (140 lb) 04/17/2023 10:28 PM NEON ELECTRICIAN Height 165.1 cm (5' 5) 04/17/2023 10:28 PM NEON ELECTRICIAN Body Mass Index 23.3 04/17/2023 10:28 PM NEON ELECTRICIAN Plan of Treatment Health Maintenance Due Date [...] Advance Directives For more information, please contact: [phone] * Full Code (Latest Code Status on File) Date Activated Date Inactivated Comments 04/17/2023 10:48 PM 04/18/2023 4:17 PM * Full Code Date Activated Date Inactivated Comments 04/17/2023 4:47 PM 04/17/2023 8:56 PM
[2024-10-02 15:39] LABS: Basophils Absolute Auto 0.1 K/mm3 (0.0-0.1); Basophils Percent Auto 0.7 % (0.2-1.2); Eosinophils Absolute Auto 0.5 K/mm3 (0-0.3); Eosinophils Percent Auto 4.9 % (0-4.4); Hematocrit 38.6 % (37.0-47.0); Hemoglobin 11.5 g/dL (12.0-15.0); Immature Granulocyte Absolute 0.06 K/mm3 (0.00-0.031); Immature Granulocyte Percent A 0.6 % (0-0.5); Lymphocytes Absolute Auto 1.86 K/mm3 (0.9-3.2); Lymphocytes Percent Auto 18.8 % (18.3-44.2); Mean Corpuscular HGB Conc 29.8 g/dl (32-36); Mean Corpuscular Hemoglobin 22.2 pg (26-34); Mean Corpuscular Volume 74.7 fl (80-100); Mean Platelet Volume 9.5 fl (7.4-10.4); Monocytes Absolute Auto 0.9 K/mm3 (0.1-0.6); Monocytes Percent Auto 9.4 % (2.6-8.5); Neutrophils Absolute Auto 6.5 K/mm3 (1.3-6.7); Neutrophils Percent Auto 65.6 % (45.5-73.1); Platelet Count Result 391 k/mm3 (150-375); Red Blood Count 5.17 M/mm3 (4.2-5.4); Red Cell Distribution Width 23.8 % (11.5-14.5); White Blood Count 9.9 K/mm3 (4.5-10.0)
[2024-10-02 15:47] LABS: Alanine Aminotransferase 44 U/L (6-35); Albumin Level 3.5 g/dL (3.5-5.1); Alkaline Phosphatase 129 U/L (38-126); Anion Gap 7 mmol/L (4-12); Aspartate Amino Transferase 42 U/L (14-36); Bilirubin,Total 0.5 mg/dL (0.2-1.3); Blood Urea Nitrogen 8 mg/dL (7-17); Carbon Dioxide 27 mmol/L (22-30); Chloride 104 mmol/L (98-107); Estimated CRCL calculation 122 ml/min; Estimated Glomerular Filt Rate > 60; Glucose 85 mg/dL (65-110); Potassium 4.1 mmol/L (3.4-5.0); Sodium 138 mmol/L (137-145); Uric Acid 4.3 mg/dL (2.5-7.5)
[2024-10-02 15:53] LABS: Anisocytosis 1+; Hypochromasia 1+; Microcytosis 1+ (NORMAL); Ovalocytes 1+; Platelet Estimate Slightly Increased (Adequate); Schistocytes None Seen
[2024-10-02] MEDS: ACETAMINOPHEN/BUTALBITAL/CAFFEINE 325-50-40 MG TABLET (FIORICET) 2 TAB PO (16:56)
[2024-10-02] MEDS: IBUPROFEN 600 MG TABLET PO (17:20)
--- NOTE | 2024-10-02 17:46 | PC.NURSE ---
contacted DR Santiago about blood pressures, med orders received.
[2024-10-02] MEDS: NIFEdipine 30 MG TAB.ER.24 PO (17:55)
== END 2024-10-02 20:48 | disposition other institution (70) ==
LOC: ANHOBOP 14:56 → ANHOBPP 14:57
PROVIDERS: Emergency Provider Physician Assistant; Visit Provider Obstetrics & Gynecology
DX: O26.90 Pregnancy related conditions, unspecified, unspecified trimester (principal); R51.9 Headache, unspecified; Z3A.00 Weeks of gestation of pregnancy not specified
CPT/HCPCS: 36415; 80053; 84550; 85025; 99199; A9270